=== PATIENT | male | born 1945 | race Caucasian/White ===

== ENCOUNTER 2019-05-20 10:22 | Outpatient (RCR) | payer MEDICARE, OTHER, SELFPAY | END 2019-05-31 00:01 | LOC: WOUND 10:22 | PROVIDERS: Family Provider Family Medicine; Visit Provider Surgery | DX: E11.621 Type 2 diabetes mellitus with foot ulcer (principal); L97.512 Non-pressure chronic ulcer of other part of right foot with fat layer exposed ==

== ENCOUNTER 2019-06-14 10:17 | Outpatient (CLI) | payer MEDICARE, OTHER, SELFPAY ==
--- NOTE | 2019-06-14 10:37 | XR_ITS ---
WS: [id number] Chest 2 views, 06/14/2019 Clinical Data: SHORTNESS OF BREATH/COPD Comparison: Left rib detail, 07/13/2017, AP chest, 01/20/2012. Findings: No nodules, masses or effusions are seen. The heart is enlarged. The pulmonary vascularity is not increased. No pneumonia or pneumothorax is seen. The patient has had plate fixation of left la teral rib fractures 4 through 8. There is an old left ninth rib fracture. The diaphragms are flattene d. The aortic arch shows tortuosity and calcification. XR/XR chest 2V* [id number] Impression: 1. Cardiomegaly and atherosclerosis. 2. Hyperinflation. 3. Plate fixation of left rib fractures unchanged.
[2019-06-14 11:25] LABS: Basophils % 0.4 %; Eosinophils # 0.7 10^3/uL (0.0-0.8); Eosinophils % 6.5 %; Hematocrit 37.9 % (42.0-52.0); Hemoglobin 11.2 g/dL (11.7-16.6); Lymphocytes # 1.8 10^3/uL (0.8-4.8); Lymphocytes % 15.7 %; Mean Corpuscular HGB Conc 29.6 g/dL (30.0-36.0); Mean Corpuscular Hemoglobin 24.3 pg (28.0-34.0); Mean Corpuscular Volume 82.4 fL (80-94); Mean Platelet Volume 10.3 fL (7.4-10.4); Monocytes # 0.9 10^3/uL (0.2-0.9); Monocytes % 7.8 %; Neutrophils # 7.7 10^3/uL (1.8-7.7); Neutrophils % 69.2 %; Nucleated Red Blood Cells % 0 %; Platelet Count 249 10^3/cmm (130-400); White Blood Count 11.2 10^3/uL (4.0-10.0)
[2019-06-14 11:37] LABS: Alanine Aminotransferase 22 U/L (0-41); Alkaline Phosphatase 124 IU/L (40-130); Anion Gap 14.6 (5-19); Aspartate Amino Transferase 17 U/L (0-40); Blood Urea Nitrogen 16 mg/dL (8-23); Calcium 10.1 mg/Dl (8.8-10.2); Carbon Dioxide 28 mmol/L (22-29); Chloride 101 mmol/L (98-107); Globulin 2.5 g/dL (1.3-4.6); Glucose 195 mg/dL (74-106); Potassium 5.6 mmol/L (3.5-5.1); Sodium 138 mmol/L (136-145); Total Bilirubin 0.2 mg/dL (0.15-1.2); Total Protein 6.5 g/dL (6.6-8.7)
== END 2019-06-14 10:18 | disposition home or self-care (01) ==
LOC: RAD 10:25
PROVIDERS: Family Provider Family Medicine; PCP Family Medicine; Visit Provider Internal Medicine Critical Care Medicine
DX: J44.9 Chronic obstructive pulmonary disease, unspecified (principal); R06.02 Shortness of breath; I51.7 Cardiomegaly; I70.0 Atherosclerosis of aorta; S22.42XD Multiple fractures of ribs, left side, subsequent encounter for fracture with routine healing; Z98.1 Arthrodesis status; X58.XXXD Exposure to other specified factors, subsequent encounter
CPT/HCPCS: 71046; 80053; 85025

== ENCOUNTER 2019-07-01 10:07 | Outpatient (RCR) | payer MEDICARE, OTHER, SELFPAY | END 2019-07-01 23:59 | disposition home or self-care (01) | LOC: WOUND 10:07 | PROVIDERS: Family Provider Family Medicine; Visit Provider Surgery | DX: E11.621 Type 2 diabetes mellitus with foot ulcer (principal); L97.512 Non-pressure chronic ulcer of other part of right foot with fat layer exposed; I96 Gangrene, not elsewhere classified | CPT/HCPCS: 11042 ==

== ENCOUNTER 2019-07-08 09:47 | Outpatient (RCR) | payer MEDICARE, OTHER, SELFPAY | END 2019-07-30 23:59 | disposition home or self-care (01) | LOC: WOUND 09:47 | PROVIDERS: Family Provider Family Medicine; PCP Family Medicine; Visit Provider Surgery | DX: E11.621 Type 2 diabetes mellitus with foot ulcer (principal); L97.519 Non-pressure chronic ulcer of other part of right foot with unspecified severity | CPT/HCPCS: 99212 ==

== ENCOUNTER 2019-07-08 10:00 | Outpatient (RCR) | payer MEDICARE, OTHER, SELFPAY | END 2019-07-30 23:59 | disposition home or self-care (01) | LOC: WOUND 10:00 | PROVIDERS: Family Provider Family Medicine; PCP Family Medicine; Visit Provider Surgery | DX: Z09 Encounter for follow-up examination after completed treatment for conditions other than malignant neoplasm (principal) | CPT/HCPCS: 99212 ==

== ENCOUNTER → 2021-12-12 10:58 | Outpatient (BNVA) | payer MEDICARE, OTHER, SELFPAY | PROVIDERS: Family Provider Family Medicine; PCP Family Medicine; Visit Provider Family Medicine | DX: E87.5 Hyperkalemia (principal); E88.09 Other disorders of plasma-protein metabolism, not elsewhere classified; I50.9 Heart failure, unspecified; D64.9 Anemia, unspecified | CPT/HCPCS: 80048 ==

== ENCOUNTER → 2021-12-19 13:54 | Outpatient (BNVA) | payer MEDICARE, OTHER, SELFPAY | PROVIDERS: Family Provider Family Medicine; PCP Family Medicine; Visit Provider Family Medicine | DX: E87.5 Hyperkalemia (principal); E88.09 Other disorders of plasma-protein metabolism, not elsewhere classified; I50.9 Heart failure, unspecified | CPT/HCPCS: 80048 ==

== ENCOUNTER → 2021-12-26 14:39 | Outpatient (BNVA) | payer MEDICARE, OTHER, SELFPAY | PROVIDERS: Family Provider Family Medicine; PCP Family Medicine; Visit Provider Family Medicine | DX: N28.9 Disorder of kidney and ureter, unspecified (principal); G47.33 Obstructive sleep apnea (adult) (pediatric) | CPT/HCPCS: 80048 ==

== ENCOUNTER → 2022-01-02 10:21 | Outpatient (BNVA) | payer MEDICARE, OTHER, SELFPAY | PROVIDERS: Family Provider Family Medicine; PCP Family Medicine; Visit Provider Family Medicine | DX: N28.9 Disorder of kidney and ureter, unspecified (principal); G47.33 Obstructive sleep apnea (adult) (pediatric) | CPT/HCPCS: 80048 ==

== ENCOUNTER → 2022-07-14 10:40 | Outpatient (BNVA) | payer MEDICARE, OTHER, SELFPAY | PROVIDERS: Family Provider Family Medicine; PCP Family Medicine; Visit Provider Clinical Nurse Specialist Adult Health | DX: Z01.810 Encounter for preprocedural cardiovascular examination (principal); I50.9 Heart failure, unspecified | CPT/HCPCS: 80048; 83880 ==

== ENCOUNTER 2022-09-09 15:16 | Outpatient (CLI) | payer MEDICARE, OTHER, SELFPAY ==
[2022-09-09 15:29] LABS: Basophils # 0.1 10^3/uL (0.0-0.1); Basophils % 0.7 %; Eosinophils # 0.6 10^3/uL (0.0-0.8); Eosinophils % 5.8 %; Hematocrit 37.3 % (42.0-52.0); Hemoglobin 11.7 g/dL (11.7-16.6); Lymphocytes # 1.2 10^3/uL (0.8-4.8); Lymphocytes % 11.8 %; Mean Corpuscular HGB Conc 31.4 g/dL (30.0-36.0); Mean Corpuscular Hemoglobin 27.4 pg (28.0-34.0); Mean Corpuscular Volume 87.4 fl (80-94); Mean Platelet Volume 10.5 fL (7.4-10.4); Monocytes # 0.8 10^3/uL (0.2-0.9); Monocytes % 8.1 %; Neutrophils # 7.13 10^3/uL (1.8-7.7); Neutrophils % 72.9 %; Nucleated Red Blood Cells % 0 %; Platelet Count 228 10^3/cmm (130-400); Red Blood Count 4.27 10^6/uL (4.1-5.3); Red Cell Distribution Width 16.8 % (12.1-15.1); White Blood Count 9.8 10^3/uL (4.0-10.0)
[2022-09-09 15:49] LABS: Alanine Aminotransferase 24 U/L (0-41); Albumin Level 3.7 g/dL (3.5-5.2); Alkaline Phosphatase 100 U/L (40-130); Anion Gap 18.7 (5-19); Aspartate Amino Transferase 22 U/L (0-40); Blood Urea Nitrogen 31 mg/dL (8-23); C Reactive Protein 131.8 mg/L (0.0-4.9); Carbon Dioxide 26 mmol/L (22-29); Chloride 99 mmol/L (98-107); Globulin 3.9 g/dL (1.3-4.6); Glucose 172 mg/dL (65-115); Osmolality Calculated 299 mOsm/kg (285-295); Potassium 4.7 mmol/L (3.5-5.1); Sodium 139 mmol/L (136-145); Total Bilirubin 0.4 mg/dL (0.15-1.2); Total Protein 7.6 g/dL (6.6-8.7)
[2022-09-09 16:10] LABS: Creatine Phosphokinase 367 U/L (39-308)
== END 2022-09-09 15:17 | disposition home or self-care (01) ==
LOC: LAB 15:19
PROVIDERS: PCP Family Medicine; Visit Provider Surgery
DX: E11.621 Type 2 diabetes mellitus with foot ulcer (principal); N18.31 Chronic kidney disease, stage 3a
CPT/HCPCS: 80053; 82550; 85025; 86140

== ENCOUNTER 2022-09-15 10:44 | Outpatient (CLI) | payer MEDICARE, OTHER, SELFPAY ==
[2022-09-15 14:13] LABS: Basophils # 0.1 10^3/uL (0.0-0.1); Basophils % 0.7 %; Eosinophils # 0.7 10^3/uL (0.0-0.8); Eosinophils % 5.8 %; Hemoglobin 12.1 g/dL (11.7-16.6); Lymphocytes # 1.5 10^3/uL (0.8-4.8); Mean Corpuscular HGB Conc 30.3 g/dL (30.0-36.0); Mean Corpuscular Hemoglobin 27.3 pg (28.0-34.0); Mean Corpuscular Volume 90.1 fl (80-94); Mean Platelet Volume 10.7 fL (7.4-10.4); Monocytes # 0.6 10^3/uL (0.2-0.9); Monocytes % 5.4 %; Neutrophils # 8.43 10^3/uL (1.8-7.7); Neutrophils % 74.6 %; Nucleated Red Blood Cells % 0 %; Platelet Count 277 10^3/cmm (130-400); Red Blood Count 4.44 10^6/uL (4.1-5.3); Red Cell Distribution Width 17.2 % (12.1-15.1); White Blood Count 11.3 10^3/uL (4.0-10.0)
[2022-09-15 14:29] LABS: Alanine Aminotransferase 20 U/L (0-41); Alkaline Phosphatase 100 U/L (40-130); Anion Gap 15.5 (5-19); Aspartate Amino Transferase 15 U/L (0-40); Blood Urea Nitrogen 28 mg/dL (8-23); C Reactive Protein 15.6 mg/L (0.0-4.9); Carbon Dioxide 28 mmol/L (22-29); Chloride 96 mmol/L (98-107); Creatine Phosphokinase 179 U/L (39-308); Globulin 3.7 g/dL (1.3-4.6); Glucose 259 mg/dL (65-115); Osmolality Calculated 292 mOsm/kg (285-295); Potassium 5.5 mmol/L (3.5-5.1); Sodium 134 mmol/L (136-145); Total Bilirubin 0.3 mg/dL (0.15-1.2); Total Protein 7.7 g/dL (6.6-8.7)
== END 2022-09-15 10:45 | disposition home or self-care (01) ==
PROVIDERS: PCP Family Medicine; Visit Provider Surgery
DX: E11.621 Type 2 diabetes mellitus with foot ulcer (principal); N18.31 Chronic kidney disease, stage 3a
CPT/HCPCS: 80053; 82550; 85025; 86140

== ENCOUNTER 2022-09-22 12:02 | Outpatient (CLI) | payer MEDICARE, OTHER, SELFPAY ==
[2022-09-22 12:16] LABS: Basophils # 0.1 10^3/uL (0.0-0.1); Basophils % 0.9 %; Eosinophils # 0.9 10^3/uL (0.0-0.8); Eosinophils % 9.4 %; Hematocrit 39.6 % (42.0-52.0); Hemoglobin 12.3 g/dL (11.7-16.6); Lymphocytes # 2.1 10^3/uL (0.8-4.8); Lymphocytes % 22.7 %; Mean Corpuscular HGB Conc 31.1 g/dL (30.0-36.0); Mean Corpuscular Volume 90.2 fl (80-94); Mean Platelet Volume 11.7 fL (7.4-10.4); Monocytes % 10.4 %; Neutrophils % 56.2 %; Nucleated Red Blood Cells % 0 %; Platelet Count 206 10^3/cmm (130-400); Red Blood Count 4.39 10^6/uL (4.1-5.3); Red Cell Distribution Width 16.9 % (12.1-15.1); White Blood Count 9.3 10^3/uL (4.0-10.0)
[2022-09-22 12:36] LABS: Alanine Aminotransferase 17 U/L (0-41); Albumin Level 3.7 g/dL (3.5-5.2); Alkaline Phosphatase 99 U/L (40-130); Aspartate Amino Transferase 13 U/L (0-40); Blood Urea Nitrogen 42 mg/dL (8-23); C Reactive Protein 17.1 mg/L (0.0-4.9); Calcium 8.8 mg/dL (8.5-10.5); Carbon Dioxide 25 mmol/L (22-29); Chloride 95 mmol/L (98-107); Creatine Phosphokinase 120 U/L (39-308); Globulin 3.2 g/dL (1.3-4.6); Glucose 374 mg/dL (65-115); Osmolality Calculated 302 mOsm/kg (285-295); Sodium 133 mmol/L (136-145); Total Bilirubin 0.4 mg/dL (0.15-1.2); Total Protein 6.9 g/dL (6.6-8.7)
== END 2022-09-22 12:03 | disposition home or self-care (01) ==
LOC: LAB 12:04
PROVIDERS: PCP Family Medicine; Visit Provider Surgery
DX: E11.621 Type 2 diabetes mellitus with foot ulcer (principal); N18.31 Chronic kidney disease, stage 3a
CPT/HCPCS: 80053; 82550; 85025; 86140

== ENCOUNTER 2022-09-29 18:39 | Outpatient (CLI) | payer MEDICARE, OTHER, SELFPAY ==
[2022-09-29 19:01] LABS: Basophils # 0.1 10^3/uL (0.0-0.1); Basophils % 0.6 %; Eosinophils # 0.8 10^3/uL (0.0-0.8); Hematocrit 37.3 % (42.0-52.0); Hemoglobin 11.6 g/dL (11.7-16.6); Lymphocytes # 1.3 10^3/uL (0.8-4.8); Lymphocytes % 10.5 %; Mean Corpuscular HGB Conc 31.1 g/dL (30.0-36.0); Mean Corpuscular Hemoglobin 28.5 pg (28.0-34.0); Mean Corpuscular Volume 91.6 fl (80-94); Mean Platelet Volume 11.9 fL (7.4-10.4); Monocytes # 1.1 10^3/uL (0.2-0.9); Monocytes % 8.8 %; Neutrophils # 9.15 10^3/uL (1.8-7.7); Neutrophils % 73.6 %; Nucleated Red Blood Cells % 0 %; Platelet Count 154 10^3/cmm (130-400); Red Blood Count 4.07 10^6/uL (4.1-5.3); White Blood Count 12.4 10^3/uL (4.0-10.0)
[2022-09-29 19:22] LABS: Albumin Level 3.8 g/dL (3.5-5.2); Alkaline Phosphatase 115 U/L (40-130); Blood Urea Nitrogen 40 mg/dL (8-23); Calcium 9.4 mg/dL (8.5-10.5); Carbon Dioxide 23 mmol/L (22-29); Chloride 96 mmol/L (98-107); Creatine Phosphokinase 126 U/L (39-308); Globulin 2.8 g/dL (1.3-4.6); Glucose 325 mg/dL (65-115); Osmolality Calculated 302 mOsm/kg (285-295); Sodium 135 mmol/L (136-145); Total Bilirubin 0.4 mg/dL (0.15-1.2); Total Protein 6.6 g/dL (6.6-8.7)
[2022-09-29 19:24] LABS: Alanine Aminotransferase 17 U/L (0-41); Anion Gap 21.7 (5-19); Aspartate Amino Transferase 19 U/L (0-40); Potassium 5.7 mmol/L (3.5-5.1)
== END 2022-09-29 18:40 | disposition home or self-care (01) ==
LOC: LAB 18:43
PROVIDERS: PCP Family Medicine; Visit Provider Surgery
DX: N18.30 Chronic kidney disease, stage 3 unspecified (principal)
CPT/HCPCS: 80053; 82550; 85025; 86140

== ENCOUNTER 2022-10-03 19:44 | Inpatient (IN) | payer MEDICARE, OTHER, SELFPAY ==
[2022-10-03 19:45] VITALS: BP 161/85; PULSE 100; RESP 20; TEMP 37.5; O2SAT 90; BMI 31.5
[2022-10-03 19:53] VITALS: BP 161/85; PULSE 100; RESP 26; TEMP 37.5; O2SAT 94
--- NOTE | 2022-10-03 19:57 | ECG_ITS ---
[facility] Test Date: 2022-10-03 Pat Name: Juan M Jara Department: Room: Gender: Male Daycare Director: : 1945 Requested By: Cosmo Contreras Order Number: [id number] Gabi MD: Joao Lawrence M.D. Measurements Intervals [place] Rate: 89 P: 61 VA: 179 QRS: 133 QRSD: 120 T: 78 QT: 381 QTc: 465 Interpretive Statements SINUS RHYTHM WITH SINUS ARRHYTHMIA RIGHT BUNDLE BRANCH BLOCK [120+ ms QRS DURATION, UPRIGHT V1, 40+ ms S IN I/aVL/V4/V5/V6] LEFT POSTERIOR FASCICULAR BLOCK [QRS AXIS > 109, INFERIOR Q] No previous ECG available for comparison Electronically Signed On 10-03-2022 23:02:45 CDT by Joao Lawrence M.D. [id number]
--- NOTE | 2022-10-03 19:57 | XRR_ITS ---
PROCEDURE INFORMATION: Exam: XR Chest Exam date and time: 10/03/2022 8:05 PM Age: 76 years old Clinical indication: Shortness of breath; Prior surgery; Surgery type: Chest reconstruction; Additional info: SOB TECHNIQUE: Imaging protocol: Radiologic exam of the chest. Views: 1 view. COMPARISON: CR XR chest 2V* [id number] 06/14/2019 10:59 AM FINDINGS: Tubes, catheters and devices: Right PICC is new and in place. Tip overlies lower SVC. Lungs: Progressive bilateral hazy patchy airspace disease especially in the right mid to lower lung. Pleural spaces: Unremarkable. No pleural effusion. No pneumothorax. Heart/Mediastinum: The heart is large. CABG and vascular calcification. Bones/joints: Left rib ORIF. XR/XR chest 1V portable [id number] IMPRESSION: Patchy bilateral pneumonia should be followed to resolution.
[2022-10-03 20:15] LABS: Basophils % 0.3 %; Eosinophils # 0.9 10^3/uL (0.0-0.8); Eosinophils % 6.5 %; Hematocrit 37.6 % (42.0-52.0); Hemoglobin 11.6 g/dL (11.7-16.6); Lymphocytes % 14.5 %; Mean Corpuscular HGB Conc 30.9 g/dL (30.0-36.0); Mean Corpuscular Hemoglobin 27.7 pg (28.0-34.0); Mean Corpuscular Volume 89.7 fl (80-94); Mean Platelet Volume 11.2 fL (7.4-10.4); Monocytes # 1.6 10^3/uL (0.2-0.9); Monocytes % 11.6 %; Neutrophils # 9.26 10^3/uL (1.8-7.7); Neutrophils % 66.5 %; Nucleated Red Blood Cells % 0 %; Platelet Count 202 10^3/cmm (130-400); Red Blood Count 4.19 10^6/uL (4.1-5.3); Red Cell Distribution Width 15.9 % (12.1-15.1); White Blood Count 13.9 10^3/uL (4.0-10.0)
[2022-10-03] MEDS: dexamethasone 10 mg/mL INJ IVP (20:30)
[2022-10-03 20:31] LABS: Lactic Sepsis W/Reflex 0.8 mmol/L (0.5-2.2)
[2022-10-03 20:34] LABS: Troponin(5th) Baseline 32 ng/L (0-15)
[2022-10-03 20:42] LABS: ABG PCO2 49.6 mmHg (35-45); ABG PH Result 7.37 (7.35-7.45); Arterial Blood Gas Hematocrit 36.6 % (42-52); Base Excess ABG 2.7 mmol/L (-2.0-2.0); Blood Gas Allen Test Pos; Blood Gas Sample Site Radial, left; Blood Gas Sample Type Arterial; Carboxyhemoglobin 1.8 %THgb (0.4-20.1); HCO3 ABG 28.8 mmol/L (22-26); HGB O2 Sat 96.2 % (95-100); Methemoglobin 0.3 % (0.4-1.5); PO2 ABG 98.5 mmHg (80.0-100.0); Total Hemoglobin 11.9 g/dL (14-18)
[2022-10-03 20:42] LABS: Alanine Aminotransferase 20 U/L (0-41); Albumin Level 3.7 g/dL (3.5-5.2); Alkaline Phosphatase 115 U/L (40-130); Aspartate Amino Transferase 22 U/L (0-40); Blood Urea Nitrogen 54 mg/dL (8-23); Calcium 8.1 mg/dL (8.5-10.5); Carbon Dioxide 28 mmol/L (22-29); Chloride 91 mmol/L (98-107); Glucose 108 mg/dL (65-115); Magnesium 1.8 mg/dL (1.7-2.3); Osmolality Calculated 289 mOsm/kg (285-295); Sodium 132 mmol/L (136-145); Total Bilirubin 0.4 mg/dL (0.15-1.2); Total Protein 6.7 g/dL (6.6-8.7)
[2022-10-03 20:45] VITALS: PULSE 87; RESP 16; O2SAT 99
[2022-10-03 20:58] LABS: SARS Covid-2 Antigen negative (Negative)
[2022-10-03 21:21] LABS: NT Pro B Type Natriuretic Pept 326 pg/mL (0-450)
--- NOTE | 2022-10-03 21:57 | ECG_ITS ---
[facility] Test Date: 2022-10-03 Pat Name: Juan M Jara Department: Room: Gender: Male Training Administrator: : 1945 Requested By: Cosmo Contreras Order Number: [id number] Gabi MD: Joao Lawrence M.D. Measurements Intervals [place] Rate: 84 P: 65 [place]: 188 QRS: 92 QRSD: 128 T: 66 QT: 393 QTc: 467 Interpretive Statements SINUS RHYTHM BORDERLINE RIGHT AXIS DEVIATION [QRS AXIS > 90] POSSIBLE RIGHT VENTRICULAR CONDUCTION DELAY [RSR (QR) IN V1/V2] Compared to ECG 10/03/2022 20:58:05 Sinus arrhythmia no longer present Right bundle-branch block no longer present Left posterior fascicular block no longer present Electronically Signed On 10-03-2022 23:04:20 CDT by Joao Lawrence M.D. [id number]
--- NOTE | 2022-10-03 22:14 | ED_ITS ---
HPI - SOB/Dyspnea General: Chief Complaint: Shortness of Breath/Dyspnea Stated Complaint: SOB Time Seen by Provider: 10/03/22 19:49 Source: patient and EMS History of Present Illness: HPI Narrative: 76-year-old male with a history of COPD and congestive heart failure. He evidently has been hospitalized for treatment of diabetic ulcerations to his feet, and left [facility] this morning. Over the course the days developed worsening shortness of breath. The patient says he has been short of breath about 3 days he was found to have saturations in the mid 70s on EMS arrival on his normal home O2.. He was placed on 6 L of oxygen, given IV Lasix and 3 different bronchodilator treatments. Saturations are mildly improved. MD elicited complaint: shortness of breath Pertinent past history: COPD and congestive heart failure Context: recent illness Timing: constant and progressively worsening Severity: moderate Exacerbating factors: lying flat and exertion Relieving factors: oxygen and bronchodilators Known history of: COPD and congestive heart failure Associated symptoms: Reports chest congestion and cough; Deny chest pain, fever(s), nausea or vomiting Treatment prior to arrival: oxygen, bronchodilator and diuretics Related Data: Home oxygen amount: 4 liters Review of Systems Const: Denies: fever(s) Card: Denies: chest pain Resp: Reports: chest congestion GI: Denies: nausea or vomiting PFS ED PFSH: Medical History (Updated 10/04/22 @ 04:33 by Cosmo Navarro DO) Anemia Chronic pain COPD (chronic obstructive pulmonary disease) Diabetes mellitus Dyspnea Surgical History (Updated 10/03/22 @ 23:42 by Chino Morrell MD) No pertinent past surgical history Family History Other Cancer Hypertension Social History Smoking and tobacco status: former smoker Alcohol intake: current Substance/Drug Use: never Physical Exam Const: GENERAL APPEARANCE: cooperative, disheveled, ill appearing and frail appearing HENMT: COMMON NORMALS: normocephalic, atraumatic and Normal external nose present HEAD & SCALP: normocephalic and atraumatic FACE & SINUS: normal facial exam and face symmetric NOSE: Normal external nose present Eye: COMMON NORMALS: EOMs intact bilaterally Neck/C-Spine: GENERAL: Yes trachea midline Chest: CHEST: Yes Symmetrical chest wall rise Resp: EFFORT & INSPECTION: Yes tachypneic, Yes labored and Yes uses accessory muscles AUSCULTATION: rhonchi and wheezes Cardio: COMMON NORMALS: regular rhythm RATE: tachycardic RHYTHM: regular rhythm GI: COMMON NORMALS: Normal to inspection, nondistended, normoactive bowel sounds present Neuro: LENIN COMA SCALE: document GCS findings [place] coma scale eye opening: Spontaneous [place] coma scale verbal response: Confused [place] coma scale motor response: Obey commands Lenin coma scale total score: 14 Psych: COMMON NORMALS: cooperative Course Vital Signs: Vital signs: Vital Signs Temperature 98.7 F 10/04/22 00:54 Pulse Rate 71 10/04/22 01:49 Respiratory Rate 22 H 10/04/22 00:54 Blood Pressure 161/83 10/04/22 00:54 Pulse Oximetry 92 10/04/22 00:54 Oxygen Delivery Me thod Nasal Cannula 10/04/22 02:01 Oxygen Flow Rate 6 10/04/22 02:01 Fraction of Inspir ed Oxygen 40 10/03/22 22:42 MDM - SOB/Dyspnea Medical Decision Making Patient had been given 3 different bronchodilator treatments in route to the hospital by EMS. He was also given IV Lasix. He received 10 mg of dexamethasone IV here. Chest x-ray reveals patchy bilateral pneumonia. He was placed on BiPAP, due to continued saturations in the mid 80s despite significant oxygenation by nasal cannula. White blood cell count is 14, hemoglobin 11.6, creatinine 1.7. He is treated with IV vancomycin and Zosyn following blood c ultures for healthcare associated pneumonia. His BNP is normal. He is on apixaban, so PE is not likely Hospitalist is seeing the patient in the emergency department Lab Data 10/04/22 02:21 10/04/22 02:21 Labs/Radiology: Radiology Impressions Chest X-Ray 10/03/22 19:57 IMPRESSION: Patchy bilateral pneumonia should be followed to resolution. Chest CT 10/03/22 23:00 IMPRESSION: 1. Multifocal severe bilateral patchy pneumonia. This needs to be followed up closely to resolution. 2. Likely reactive bulky mediastinal lymphadenopathy. 3. Multiple chronic findings above with atherosclerosis, COPD, etc. COMMENTS: In the absence of a history or active diagnosis of lung cancer, it is recommended that this patient with emphysema be evaluated for enrollment in a low dose CT lung cancer screening program. Laboratory Results WBC 13.9 10^3/uL (4.0-10.0) H 10/03/22 19:50 RBC 4.19 10^6/uL (4.1-5.3) 10/03/22 19:50 Hgb 11.6 g/dL (11.7-16.6) L 10/03/22 19:50 Hct 37.6 % (42.0-52.0) L 10/03/22 19:50 MCV 89.7 fl (80-94) 10/03/22 19:50 MCH 27.7 pg (28.0-34.0) L 10/03/22 19:50 MCHC 30.9 g/dL (30.0-36.0) 10/03/22 19:50 RDW 15.9 % (12.1-15.1) H 10/03/22 19:50 Plt Count 202 10^3/cmm (130-400) 10/03/22 19:50 MPV 11.2 fL (7.4-10.4) H 10/03/22 19:50 Neut % (Auto) 66.5 % 10/03/22 19:50 Lymph % (Auto) 14.5 % 10/03/22 19:50 Hale % (Auto) 11.6 % 10/03/22 19:50 Eos % (Auto) 6.5 % 10/03/22 19:50 Baso % (Auto) 0.3 % 10/03/22 19:50 Neut # (Auto) 9.26 10^3/uL (1.8-7.7) H 10/03/22 19:50 Lymph # (Auto) 2.0 10^3/uL (0.8-4.8) 10/03/22 19:50 Hale # (Auto) 1.6 10^3/uL (0.2-0.9) H 10/03/22 19:50 Eos # (Auto) 0.9 10^3/uL (0.0-0.8) H 10/03/22 19:50 Baso # (Auto) 0.0 10^3/uL (0.0-0.1) 10/03/22 19:50 Nucleated RBC % (auto) 0 % 10/03/22 19:50 Nucleated RBCs # 0.0 /100WBC 10/03/22 19:50 Specimen Type Arterial 10/03/22 20:31 Sample Site Radial, left 10/03/22 20:31 ABG pH 7.37 (7.35-7.45) 10/03/22 20:31 ABG pCO2 49.6 mmHg (35-45) H 10/03/22 20:31 ABG pO2 98.5 mmHg (80.0-100.0) 10/03/22 20:31 ABG HCO3 28.8 mmol/L (22-26) H 10/03/22 20:31 ABG Base Excess 2.7 mmol/L (-2.0-2.0) H 10/03/22 20:31 Renzo Test Pos 10/03/22 20:31 Hematocrit 36.6 % (42-52) L 10/03/22 20:31 Hgb O2 Saturation 96.2 % (95-100) 10/03/22 20:31 Carboxyhemoglobin 1.8 %THgb (0.4-20.1) 10/03/22 20:31 Methemoglobin 0.3 % (0.4-1.5) L 10/03/22 20:31 Total Hemoglobin 11.9 g/dL (14-18) L 10/03/22 20:31 FiO2 60.0 % 10/03/22 20:31 Educational Sign Language Interpreter ID [email or web address] 10/03/22 20:31 Sodium 132 mmol/L (136-145) L 10/03/22 19:50 Potassium 5.0 mmol/L (3.5-5.1) 10/03/22 19:50 Chloride 91 mmol/L (98-107) L 10/03/22 19:50 Carbon Dioxide 28 mmol/L (22-29) 10/03/22 19:50 Anion Gap 18.0 (5-19) 10/03/22 19:50 BUN 54 mg/dL (8-23) H 10/03/22 19:50 Creatinine 1.7 mg/dL (0.7-1.2) H 10/03/22 19:50 GFR Calculation Not Reportable 10/03/22 19:50 Glucose 108 mg/dL (65-115) 10/03/22 19:50 Calculated Osmolality 289 mOsm/kg (285-295) 10/03/22 19:50 Lactic Acid 0.8 mmol/L (0.5-2.2) 10/03/22 19:50 Calcium 8.1 mg/dL (8.5-10.5) L 10/03/22 19:50 Magnesium 1.8 mg/dL (1.7-2.3) 10/03/22 19:50 Total Bilirubin 0.4 mg/dL (0.15-1.2) 10/03/22 19:50 AST 22 U/L (0-40) 10/03/22 19:50 ALT 20 U/L (0-41) 10/03/22 19:50 Alkaline Phosphatase 115 U/L (40-130) 10/03/22 19:50 Troponin T Baseline 32 ng/L (0-15) H 10/03/22 19:50 Troponin T 120 Minute 31.40 ng/L (0-15) H 10/03/22 22:22 Delta Troponin T -0.60 ABS# (0-10) L 10/03/22 22:22 C-Reactive Protein 277.7 mg/L (0.0-4.9) H 10/03/22 02:21 NT-Pro-B Natriuret Pep 326 pg/mL (0-450) 10/03/22 19:50 Total Protein 6.7 g/dL (6.6-8.7) 10/03/22 19:50 Albumin 3.7 g/dL (3.5-5.2) 10/03/22 19:50 Globulin 3.0 g/dL (1.3-4.6) 10/03/22 19:50 Triglycerides 96 mg/dL (0-150) 10/03/22 02:21 Cholesterol 160 mg/dL (0-200) 10/03/22 02:21 LDL Cholesterol, Calc 103 mg/dL (50-129) 10/03/22 02:21 HDL Cholesterol 38 mg/dL (60-100) L 10/03/22 02:21 LDL/HDL Ratio 2.71 RATIO (0.00-3.22) 10/03/22 02:21 Cholesterol/HDL Ratio 4.21 mg/dL (1.0-5.00) 10/03/22 02:21 Procalcitonin 0.68 ng/mL (0-0.5) H 10/03/22 02:21 TSH 0.82 uIU/mL (0.27-4.20) 10/03/22 02:21 SARS-CoV-2 Ag (Rapid) negative (Negative) 10/03/22 20:34 Discharge Plan Discharge Patient Disposition: Admitted As Inpatient Admit Provider: Chino Morrell Clinical Impression: Acute on chronic respiratory failure with hypoxia, Acute exacerbation of chronic obstructive pulmonary disease (COPD), Healthcare-associated pneumonia Condition: Fair Coding Level of Care Code ED Magento Developer for Crystal Walker
[2022-10-03] MEDS: piperacillin-tazobactam 4.5 GM in sodium chloride 0.9% (plus) 50 ML IV (22:25)
--- NOTE | 2022-10-03 22:29 | PC.PHAR ---
Pharmacokinetic dosing service Date: 10/03/22 Time: 2229 Objective: Patient: Juan M Jara Floor: ED-12 Age: 76 yo Serum creatinine: 1.7 mg/dL Height: 70.0 Inches Weight (kg): 99.79 Diagnosis: Relevant medical/social history: Cultures and sensitivities: Other labs: Assessment: IBW (kg): 73.00 Dosing wt(kg): 99.79 Estimated Creatinine clearance (ml/min): 37.6 CRCL method: Cockcroft and Gault using ibw(default). Drug selected: Vancomycin Loading dose (mg): 0 Vd (liters): 89.8 (factor used: 0.9 L/kg) Albert (hr-1): 0.036 Half life (hrs): 19.25 Recommended dose: 1500 mg Interval: 24 hrs Infusion time (hrs): 1.5 Predicted peak (mcg/mL): 28.1 Predicted trough (mcg/mL): 12.50 Total body weight is being used for vancomycin dosing. Renal function is stable [ ] /unstable [ ] Recommendations: Give Vancomycin 1500 mg q 24 hrs with an expected Cpeak of 28.1 mcg/ml and an expected Ctrough of 12.50 mcg/ml Renal dosing of other antibiotics (review renal dosing of other medications and list guidelines here): Thank you for the consult, will continue to follow. Signature: Deloris Nicole [facility]
[2022-10-03 22:42] VITALS: PULSE 81; RESP 16; O2SAT 92
--- NOTE | 2022-10-03 23:00 | CTR_ITS ---
PROCEDURE INFORMATION: Exam: CT Chest Without Contrast; Diagnostic Exam date and time: 10/03/2022 11:08 PM Age: 76 years old Clinical indication: Shortness of breath; Additional info: SOB TECHNIQUE: Imaging protocol: Diagnostic computed tomography of the chest without contrast. Radiation optimization: All CT scans at this facility use at least one of these dose optimization techniques: automated exposure control; mA and/or kV adjustment per patient size (includes targeted exams where dose is matched to clinical indication); or iterative reconstruction. REPORTING DATA: Count of CT and Cardiac NM exams in prior 12 months: This patient has received 0 known CTs and 0 known cardiac nuclear medicine studies in the 12 months prior to the current study. COMPARISON: CR (CHEST, ) 10/03/2022 8:05 PM RADIATION DOSE METRICS: Total DLP (mGy-cm): 585.71 FINDINGS: Tubes, catheters and devices: Right PICC in place. Lungs: Moderate emphysema with COPD. Large areas of patchy bilateral airspace consolidation, qjxvs-vxozpvx-jydd-left. These measure up to about 7 cm in size. Airspace consolidation are likely, but other etiologies are also possible. Scattered areas of reticulonodular probable scarring. Pleural spaces: No pneumothorax. No pleural effusion. Heart: The heart is large. No pericardial effusion. Lymph nodes: Moderate bulky mediastinal lymphadenopathy. Nodes measure up to about 2.4 cm. Vasculature: Advanced diffuse vascular calcification noted. Vhjn-uk-dhiwmcba pulmonary hypertension. Diaphragm: Small hiatal hernia. Liver: Large and fatty liver. Bones/joints: Multifocal left rib ORIF. Advanced spine DJD. A few old left lower lateral rib deformities. Soft tissues: Right shoulder large intramuscular lipoma measures [address]/CT chest wo con [id number] IMPRESSION: 1. Multifocal severe bilateral patchy pneumonia. This needs to be followed up closely to resolution. 2. Likely reactive bulky mediastinal lymphadenopathy. 3. Multiple chronic findings above with atherosclerosis, COPD, etc. COMMENTS: In the absence of a history or active diagnosis of lung cancer, it is recommended that this patient with emphysema be evaluated for enrollment in a low dose CT lung cancer screening program.
[2022-10-03 23:08] VITALS: BP 150/66; PULSE 69; RESP 14; O2SAT 90
[2022-10-03] MEDS: vancomycin 1,500 MG/300 ML PIGGYBACK 200 MG IV (23:19)
--- NOTE | 2022-10-03 23:40 | P.HP_ITS ---
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 Patient tells me that he was just discharged from [facility], when he got home, he started to feel increasingly short of breath, with drops in his O2 sats, no fev ers, no chills, no calf pain, calf swelling, hemoptysis, has been taking all his medication as prescribed. His gave him 80 of Lasix, he also received 40 of Lasix in the ambulance ride over to [facility], he was placed on BiPAP here, currently resting comfortably on BiPAP, he wanted come off BiPAP as he could not tolerate it, so I put him on 10 L saturating in the mid s, I recommended for him to go back on BiPAP due to acute respiratory failure denies any chest pain, no palpitations Review of Systems Const: Denies: fever(s) Card: Denies: chest pain Resp: Reports: dyspnea GI: Denies: abdominal pain Medications/Allergies Home Medications Medication Instructions Recorded Confirmed Last Taken Type oxygen-air delivery systems ##1 06/10/19 07/14/22 Unknown History hydrocodone 7.5 mg-acetaminophen 1 tab PO Q3H PRN pain 1 month #100 02/14/22 07/14/22 Unknown Rx 325 mg tablet tabs furosemide 80 mg tablet 80 mg PO DAILY #30 tabs 03/04/22 07/14/22 Unknown Rx blood-glucose meter #1 ea 03/25/22 07/14/22 Unknown Rx isosorbide dinitrate 20 mg tablet 20 mg PO BID #180 tabs 03/25/22 07/14/22 Unknown Rx apixaban 5 mg tablet (Eliquis) 5 mg PO BID #180 tabs 03/27/22 07/14/22 Unknown Rx fluticasone fur. 100 mcg-umeclid 1 inh inhalation DAILY #60 ea 03/27/22 07/14/22 Unknown Rx 62.5 mcg-vilant 25 mcg inhalat.powder (Trelegy Ellipta) spironolactone 25 mg tablet 25 mg PO DAILY #90 tabs 05/23/22 07/14/22 Unknown Rx prednisone 5 mg tablet 5 mg PO DAILY PRN inflammatory 06/07/22 07/14/22 Unknown Rx pain #90 tabs metformin 1,000 mg tablet See Rx Instructions .Route 07/08/22 07/14/22 Unknown Rx .COMPLEX #180 tabs albuterol sulfate 2.5 mg/3 mL 2.5 mg (3 mL) inhalation QID #180 07/11/22 07/14/22 Unknown Rx (0.083 %) solution for nebulization mL nebulizers #1 ea 08/17/22 Unknown Rx albuterol sulfate 90 mcg/actuation 2 puff inhalation QID PRN 10/02/22 Unknown Rx aerosol inhaler (Ventolin HFA) shortness of breath or wheezing #8.5 grams insulin glargine 100 unit/mL (3 20 unit (0.2 mL) SUBCUT QAM #15 mL 10/02/22 Unknown Rx mL) subcutaneous pen (Basaglar KwikPen U-100 Insulin) morphine 30 mg tablet,extended 30 mg PO Q12H 30 days #60 tabs 10/02/22 Unknown Rx release pen needle, diabetic 31 gauge x #100 ea 10/02/22 Unknown Rx 1/4 (Unifine Pentips) pregabalin 150 mg capsule (Lyrica) 150 mg PO TID #90 caps 10/02/22 Unknown Rx test strips, lancets, needles #100 ea 10/02/22 Unknown Rx Allergies Allergy/AdvReac Type Severity Reaction Status Date / Time fentanyl Allergy Unknown Unknown Verified 07/14/22 11:23 methadone Allergy Unknown Unknown Verified 07/14/22 11:23 oxycodone Allergy Unknown Unknown Verified 07/14/22 11:23 Ruhgnhk-IWT-RsQ Reductase Allergy Unknown Verified 07/14/22 11:23 Inhibitor [Uhjuqmw-Xwo-Zdg Reductase Inhibitor] Ativan Allergy Unknown Unknown Uncoded 07/14/22 11:23 Dilaudid Allergy Unknown Unknown Uncoded 07/14/22 11:23 PFSH Acute PFSH: Medical History (Updated 10/03/22 @ 23:46 by Chino Morrell MD) Anemia Chronic pain COPD (chronic obstructive pulmonary disease) Diabetes mellitus Dyspnea Surgical History (Updated 10/03/22 @ 23:42 by Chino Morrell MD) No pertinent past surgical history Family History Other Cancer Hypertension Social History Smoking and tobacco status: former smoker Alcohol intake: current Substance/Drug Use: never Vitals/I&O/Wt Last Vital Signs Temp 99.5 F 10/03/22 19:53 Pulse 81 10/03/22 22:42 Resp 26 H 10/03/22 19:53 BP 161/85 10/03/22 19:53 Pulse Ox 92 10/03/22 22:42 O2 Del Method Nasal Cannula 10/03/22 19:53 O2 Flow Rate 6 10/03/22 19:53 FiO2 40 10/03/22 22:42 10/03/22 10/03/22 10/04/22 14:59 22:59 06:59 Intake Total 50 / 50 Balance 50 / 50 Weight last 48 hrs Weight 99.79 kg Physical Exam Const: COMMON NORMALS: no acute distress and patient oriented x3 HENMT: COMMON NORMALS: normocephalic HEAD & SCALP: normocephalic Eye: COMMON NORMALS: Equal, round and reactive pupils present Neck/C-Spine: COMMON NORMALS: no JVD Lymph: LYMPHATIC: no lymphadenopathy noted Resp: COMMON NORMALS: normal respiratory effort, No retractions and No use of accessory muscles AUSCULTATION: crackles and wheezes Cardio: COMMON NORMALS: regular rate, regular rhythm, S1 normal heart sound present and S2 normal heart sound present RATE: regular rate RHYTHM: regular rhythm HEART SOUNDS: S1 normal heart sound present and S2 normal heart sound present GI: COMMON NORMALS: Normal to inspection, nondistended, normoactive bowel sounds present, Soft to palpation and non-tender PALPATION: Yes Soft to palpation : COMMON NORMALS: Yes no CVA tenderness Extremity: COMMON NORMALS: no calf tenderness NARRATIVE EXTREMITY EXAM: 1+ pitting edema Neuro: COMMON NORMALS: patient oriented x3, CN's II-XII intact bilaterally, moves all extremities and no focal motor deficits OTHER: Left foot, diabetic ulcer dressed Psych: COMMON NORMALS: mental status grossly normal Data 10/03/22 19:50 10/03/22 19:50 Micro: Microbiology 10/03/22 20:32 Blood Culture - Preliminary Blood SPECIMEN COLLECTED 10/03/22 20:25 Blood Culture - Preliminary Blood SPECIMEN COLLECTED A&P Assessment and plan (1) Acute on chronic respiratory failure with hypoxia: (2) Healthcare-associated pneumonia: (3) CHF exacerbation: (4) Fluid overload: (5) Acute kidney injury superimposed on CKD: (6) Non-ST elevation NV (NSTEMI): (7) Diabetes mellitus: (8) COPD (chronic obstructive pulmonary disease): (9) Congestive heart failure: Qualifiers: Heart failure type: unspecified Heart failure chronicity: chronic Qualified Code(s): I50.9 - Heart failure, unspecified (10) Renal insufficiency: (11) Obstructive sleep apnea: Plan Acute hypoxic respiratory failure -Secondary to healthcare associated pneumonia -Patient is already on daptomycin, and ceftazidime -CT of the chest shows multifocal bilateral pneumonia -Currently on 10 L nasal cannula, have recommended for him to use BiPAP Plan -Admit to general medical floors -Monitor respiratory status closely -Sputum cultures, blood cultures -Continue vancomycin -Broaden antibiotic coverage to meropenem -DuoNeb -Budesonide -Full code -Eliquis for DVT prophylaxis Fluid overload, diastolic CHF exacerbation -Has received Lasix at home and in the ambulance ride over to [facility] -We will start Bumex 1 mg every 12 hours starting tomorrow morning -Cardiac echo NSTEMI -Likely type II supply/demand Babs from acute respiratory failure as above however cannot rule out underlying cardiac etiology -Serial EKGs, troponins, cardiac monitoring VIKTOR on CKD, monitor creatinine closely Type 2 diabetes mellitus, continue Lantus 20 units every morning, low-dose sliding scale Chronic pain continue home morphine NOÉ recommended BiPAP use Atrial fibrillation continue Eliquis Attestations Medical Necessity Statement*: Patient requires hospitalization, inpatient, greater than 2 midnights, for acute hypoxic respiratory failure secondary to healthcare associated pneumonia, NSTEMI, VIKTOR, fluid overload Diagnoses Acute on chronic respiratory failure with hypoxia J96.21 Healthcare-associated pneumonia J18.9 CHF exacerbation I50.9 Fluid overload E87.70 Acute kidney injury superimposed on CKD N17.9; N18.9 Non-ST elevation NV (NSTEMI) I21.4 Diabetes mellitus E11.9 COPD (chronic obstructive pulmonary disease) J44.9 Congestive heart failure I50.9 Heart failure type: unspecified Heart failure chronicity: chronic Renal insufficiency N28.9 Obstructive sleep apnea G47.33
[2022-10-04] VITALS (32 sets, daily range): BP systolic 114–172; BP diastolic 52–99; PULSE 50–133; RESP 9–26; TEMP 36.4–37.1; O2SAT 82–94
--- NOTE | 2022-10-04 02:09 | ECG_ITS ---
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 Measurements Intervals [place] Rate: 55 P: 81 ND: 192 QRS: 172 QRSD: 131 T: 120 QT: 493 QTc: 475 Interpretive Statements SINUS BRADYCARDIA INTRAVENTRICULAR CONDUCTION DELAY [130+ ms QRS DURATION] POSSIBLE RIGHT VENTRICULAR HYPERTROPHY [SOME/ALL OF: PROMINENT R IN V1, LATE TRANSITION, RAD, TREVER, SSS] POSSIBLE ANTERIOR MYOCARDIAL INFARCTION , OF INDETERMINATE AGE [30 ms Q WAVE IN V3/V4, OR R < 0.2 mV IN V4] Compared to ECG 10/03/2022 22:22:05 Intraventricular conduction delay now present Myocardial infarct finding now present Sinus rhythm no longer present Electronically Signed On 10-04-2022 9:57:41 CDT by Truman Sharp M.D. [id number]
[2022-10-04] MEDS: pantoprazole 40 mg SDV IVP (02:23)
[2022-10-04 02:25] LABS: Glucose Point of Care 225 mg/dL (70-110)
[2022-10-04 02:31] LABS: Basophils % 0.2 %; Eosinophils # 0.1 10^3/uL (0.0-0.8); Eosinophils % 0.8 %; Hematocrit 37.2 % (42.0-52.0); Hemoglobin 11.3 g/dL (11.7-16.6); Lymphocytes # 0.7 10^3/uL (0.8-4.8); Mean Corpuscular HGB Conc 30.4 g/dL (30.0-36.0); Mean Corpuscular Hemoglobin 27.4 pg (28.0-34.0); Mean Corpuscular Volume 90.1 fl (80-94); Mean Platelet Volume 10.6 fL (7.4-10.4); Monocytes # 0.3 10^3/uL (0.2-0.9); Monocytes % 2.1 %; Neutrophils # 10.61 10^3/uL (1.8-7.7); Neutrophils % 90.2 %; Nucleated Red Blood Cells % 0 %; Platelet Count 185 10^3/cmm (130-400); Red Blood Count 4.13 10^6/uL (4.1-5.3); Red Cell Distribution Width 15.9 % (12.1-15.1); White Blood Count 11.8 10^3/uL (4.0-10.0)
[2022-10-04 02:46] LABS: Blood Urea Nitrogen 57 mg/dL (8-23); Calcium 8.7 mg/dL (8.5-10.5); Carbon Dioxide 26 mmol/L (22-29); Chloride 92 mmol/L (98-107); Glucose 204 mg/dL (65-115); Magnesium 1.9 mg/dL (1.7-2.3); Osmolality Calculated 298 mOsm/kg (285-295); Sodium 133 mmol/L (136-145)
[2022-10-04 02:49] LABS: Troponin 5 6HR 26.01 ng/L (0-15)
[2022-10-04] MEDS: meropenem 1,000 MG in sodium chloride 0.9% (plus) 50 ML 100 MG IV ×3 (02:51→21:14)
[2022-10-04 02:55] LABS: Procalcitonin 0.68 ng/mL (0-0.5); Thyroid Stimulating Hormone 0.82 uIU/mL (0.27-4.20)
[2022-10-04 03:05] LABS: Troponin 5 6HR Delta -5.99 ng/L (0-12)
[2022-10-04 03:06] LABS: C Reactive Protein 277.7 mg/L (0.0-4.9); Chol HDL Ratio 4.21 mg/dL (1.0-5.00); Cholesterol 160 mg/dL (0-200); HDL Cholesterol 38 mg/dL (60-100); LDL Cholesterol Calculated 103 mg/dL (50-129); LDL HDL Ratio 2.71 RATIO (0.00-3.22); Triglycerides 96 mg/dL (0-150)
--- NOTE | 2022-10-04 05:00 | PC.NURSE ---
Patient was profusely sweating and needed an entire bed change. The patient had previously refused a gown but needed to change into a gown because his clothes were wet with sweat. Multiple tele patches needed to be changed due to patient sweating. Patient was unsteady getting up and assisted by 2 nurses. After bed change patient stated he felt much better.
[2022-10-04 06:21] LABS: Glucose Point of Care 265 mg/dL (70-110)
[2022-10-04] MEDS: insulin glargine 100 units/1 mL 20 UNIT SUBCUT (06:31)
[2022-10-04] MEDS: ipratropium-albuterol 3 mL Neb INHALATION ×4 (07:22→19:30)
[2022-10-04] MEDS: budesonide 0.5 mg/2 mL Neb INHALATION ×2 (07:22→19:30)
[2022-10-04 08:14] LABS: Glucose Point of Care 281 mg/dL (70-110)
[2022-10-04] MEDS: morphine ER (12 HR) 30 mg tablet PO (08:52)
[2022-10-04] MEDS: pregabalin 150 mg Capsule PO ×2 (08:52→17:37)
[2022-10-04] MEDS: spironolactone 25 mg Tablet PO (08:53)
[2022-10-04] MEDS: aspirin 81 mg EC Tablet PO (08:53)
[2022-10-04] MEDS: isosorbide dinitrate 20 mg Tablet PO ×2 (08:53→17:57)
[2022-10-04] MEDS: apixaban 5 mg Tablet PO ×2 (08:54→17:37)
[2022-10-04] MEDS: bumetanide 0.25 mg/mL SDV 4 mL 1 MG IVP ×2 (08:54→21:25)
[2022-10-04] MEDS: insulin lispro 100 unit/1 mL SUBCUT ×3 (09:11→17:58)
--- NOTE | 2022-10-04 11:20 | PM.PN ---
Subjective Subjective: seen this AM. states he is feeling much improved seen in 5L NC (baseline 3L) was 10L earlier in the AM tolerationg PO well still having SOB and fatigue. refused BIPAP last evening. Vitals/I&O/Wt Last Vital Signs Temp 98.7 F 10/04/22 08:00 Pulse 60 10/04/22 11:14 Resp 16 10/04/22 11:14 BP 137/65 10/04/22 10:00 Pulse Ox 92 10/04/22 11:14 O2 Del Method Nasal Cannula 10/04/22 11:14 O2 Flow Rate 4 10/04/22 11:14 FiO2 40 10/03/22 22:42 10/03/22 10/04/22 10/04/22 22:59 06:59 14:59 Intake Total 50 / 50 650 / 700 Output Total 600 / 600 Balance 50 / 50 50 / 100 Weight last 48 hrs Weight 220 lb Physical Exam Const: COMMON NORMALS: no acute distress and patient oriented x3 HENMT: COMMON NORMALS: normocephalic HEAD & SCALP: normocephalic Eye: COMMON NORMALS: Equal, round and reactive pupils present PUPIL: Yes Equal, round and reactive pupils present Neck/C-Spine: COMMON NORMALS: no JVD Lymph: LYMPHATIC: no lymphadenopathy noted Resp: COMMON NORMALS: normal respiratory effort, No retractions and No use of accessory muscles AUSCULTATION: crackles and wheezes Cardio: COMMON NORMALS: no JVD, regular rate, regular rhythm, S1 normal heart sound present and S2 normal heart sound present RATE: regular rate RHYTHM: regular rhythm HEART SOUNDS: S1 normal heart sound present and S2 normal heart sound present GI: COMMON NORMALS: Normal to inspection, nondistended, normoactive bowel sounds present, Soft to palpation and non-tender PALPATION: Yes Soft to palpation : COMMON NORMALS: Yes no CVA tenderness BLADDER/KIDNEY EXAM: Yes no CVA tenderness Back/Pelvis: COMMON NORMALS: no CVA tenderness Extremity: COMMON NORMALS: no calf tenderness NARRATIVE EXTREMITY EXAM: 1+ pitting edema Neuro: COMMON NORMALS: patient oriented x3, CN's II-XII intact bilaterally, moves all extremities and no focal motor deficits OTHER: Left foot, diabetic ulcer dressed Psych: COMMON NORMALS: mental status grossly normal Data 10/04/22 02:21 10/04/22 02:21 Micro: Microbiology 10/03/22 20:32 Blood Culture - Preliminary Blood SPECIMEN COLLECTED 10/03/22 20:25 Blood Culture - Preliminary Blood SPECIMEN COLLECTED A&P Assessment and plan (1) Acute on chronic respiratory failure with hypoxia: (2) Healthcare-associated pneumonia: (3) CHF exacerbation: (4) Fluid overload: (5) Acute kidney injury superimposed on CKD: (6) Non-ST elevation DE (NSTEMI): (7) Diabetes mellitus: (8) COPD (chronic obstructive pulmonary disease): (9) Congestive heart failure: Qualifiers: Heart failure chronicity: chronic Heart failure type: unspecified Qualified Code(s): I50.9 - Heart failure, unspecified (10) Renal insufficiency: (11) Obstructive sleep apnea: Plan Acute hypoxic respiratory failure -Secondary to healthcare associated pneumonia -Patient is already on daptomycin, and ceftazidime from previous hospitalization at [facility] -Started on Vanc and meropenem -CT of the chest shows multifocal bilateral pneumonia -Currently on 6 L nasal cannula, have recommended for him to use BiPAP at night time -pending sputum and blood cultures -continue Duonebs, budesonide Fluid overload, diastolic CHF exacerbation -Has received Lasix at home and in the ambulance ride over to [facility] -Bumex 1 mg every 12 hour. started the AM. -improved volume status -Cardiac echo pending NSTEMI -Likely type II supply/demand Babs from acute respiratory failure as above however cannot rule out underlying cardiac etiology -Serial EKGs -troponins not showing STEMI -pending ECHO VIKTOR on CKD, - monitor creatinine closely -showing some elevation Type 2 diabetes mellitus, -continue Lantus 20 units every morning, low-dose sliding scale Chronic pain -continue home morphine NOÉ -recommended BiPAP use Atrial fibrillation -continue Eliquis Diabetic foot wound - to dress in room. Eliquis for DVT prophylaxis Attestations Medical Necessity Statement*: heart failure Coding Level of Care Code 08721 Diagnoses Acute on chronic respiratory failure with hypoxia J96.21 Healthcare-associated pneumonia J18.9 CHF exacerbation I50.9 Fluid overload E87.70 Acute kidney injury superimposed on CKD N17.9; N18.9 Non-ST elevation DE (NSTEMI) I21.4 Diabetes mellitus E11.9 COPD (chronic obstructive pulmonary disease) J44.9 Congestive heart failure I50.9 Heart failure chronicity: chronic Heart failure type: unspecified Renal insufficiency N28.9 Obstructive sleep apnea G47.33
[2022-10-04 11:29] LABS: Glucose Point of Care 281 mg/dL (70-110)
--- NOTE | 2022-10-04 15:04 | PC.NURSE ---
Patient's PICC line dressing was changed on 10/02/22 at [facility].
[2022-10-04 17:27] LABS: Glucose Point of Care 301 mg/dL (70-110)
[2022-10-04] MEDS: metformin XR 500 MG Tablet PO (18:27)
[2022-10-04] MEDS: alteplase 1 mg/mL SDV 2 mL 2 MG INTRACATH (18:48)
[2022-10-04 20:49] LABS: Glucose Point of Care 350 mg/dL (70-110)
[2022-10-04] MEDS: terazosin 5 mg Capsule PO (21:26)
--- NOTE | 2022-10-04 23:00 | USCV_ITS ---
Juan M Jara Age: 76 Gender: M : 1945 Exam Date: 10/04/2022 17:57 Ordering Phys: Chino Morrell MD Technologist: KOURTNEY [place] [facility] [place]: sob BP: / HR: 64 Rhythm: Sinus Technical Quality: Adequate MEASUREMENTS (Male / Female) Normal Values 2D ECHO LV Diastolic Diameter PLAX 6.5 cm 4.2 - 5.9 / 3.9 - 5.3 cm LV Systolic Diameter PLAX 4.7 cm IVS Diastolic Thickness 0.9 cm 0.6 - 1.0 / 0.6 - 0.9 cm IVS Systolic Thickness 1.3 cm LVPW Diastolic Thickness 0.9 cm 0.6 - 1.0 / 0.6 - 0.9 cm LVPW Systolic Thickness 1.3 cm LVOT Diameter 2.1 cm LV Ejection Fraction 2D Teich 51.4 % LV Ejection Fraction MOD 2C 47.1 % LV Ejection Fraction 2C AL 47.4 % LA Diameter 4.1 cm IVC Diameter 2.3 cm M-MODE Aortic Annulus Diameter 4.1 cm LA Ao Ratio MM 1.2 MV E Point Septal Separation 0.1 cm DOPPLER AV Peak Velocity 136.0 cm/s LVOT Peak Velocity 115.0 cm/s AV Area Cont Eq vti 3.4 cm squared AV Area Cont Eq pk 3.0 cm squared MV Area PHT 2.7 cm squared Mitral E to A Ratio 0.8 MV E' Velocity 49.0 cm/s Mitral E to MV E' Ratio 12.1 Mitral E to LV E' Lateral Ratio 12.6 Mitral E to LV E' Septal Ratio 11.8 TR Peak Velocity 345.0 cm/s TR Peak Gradient 47.6 mmHg TV Peak E Velocity 56.0 cm/s Right Atrial Pressure 9.0 mmHg Pulmonary Artery Systolic Pressu 56.6 mmHg PV Peak Velocity 163.0 cm/s FINDINGS Left Ventricle Normal left ventricular size, systolic function and wall thickness, with no regional wall motion abnormalities. Left ventricular ejection fraction is estimated at 60 %. Grade I/IV diastolic dysfunction (abnormal relaxation filling pattern), normal to mildly elevated filling pressures. Right Ventricle Normal right ventricular size and systolic function. Moderate pulmonary hypertension, RVSP 56.6 mmHg. Right Atrium Mildly increased right atrial size. Left Atrium Mildly increased left atrial size. Mitral Valve Structurally normal mitral valve without significant stenosis or prolapse. There is no mitral regurgitation. Aortic Valve Structurally normal aortic valve without significant sclerosis or stenosis. There is no aortic regurgitation. Tricuspid Valve Structurally normal tricuspid valve. Mild tricuspid valve regurgitation. Pulmonic Valve Pulmonic valve not well visualized. Pericardium Normal pericardium without effusion. Aorta Normal ascending aorta dimension. IVC The inferior vena cava is normal in size. It does not quite collapse normally with respiration. Estimated right atrial pressure 5 to 10 mmHg. CONCLUSIONS Normal left ventricular size, systolic function and wall thickness, with no regional wall motion abnormalities. Left ventricular ejection fraction is estimated at 60 %. Grade I/IV diastolic dysfunction (abnormal relaxation filling pattern), normal to mildly elevated filling pressures. Normal right ventricular size and systolic function. Moderate pulmonary hypertension, RVSP 56.6 mmHg. Mildly increased right atrial size. Mildly increased left atrial size. The inferior vena cava is normal in size. It does not quite collapse normally with respiration. Estimated right atrial pressure 5 to 10 mmHg. There are no prior echocardiogram studies to compare. Dr. Truman Sharp MD (Electronically Signed) Final Date: 05 Oct 2022 10:12 S
--- NOTE | 2022-10-04 23:29 | USR_ITS ---
PROCEDURE INFORMATION: Exam: US Duplex Lower Extremity Veins, Bilateral Exam date and time: 10/04/2022 6:24 PM Age: 76 years old Clinical indication: Edema, localized; Lower extremity, bilateral; Additional info: Swelling TECHNIQUE: Imaging protocol: Real-time duplex ultrasound of the bilateral extremities with 2-D gannon scale, color Doppler flow and spectral waveform analysis including responses to compression and other maneuvers (when performed) with image documentation. Complete exam focused on the lower extremity veins. COMPARISON: MR foot RT wo/w con [id number] 05/04/2019 7:36 AM FINDINGS: Right deep veins: Unremarkable. The common femoral, femoral, proximal profunda femoral and popliteal veins are patent without thrombus. Normal Doppler waveforms. Normal compressibility and/or augmentation response. Right superficial veins: Saphenofemoral junction is patent without thrombus. Left deep veins: Unremarkable. The common femoral, femoral, proximal profunda femoral and popliteal veins are patent without thrombus. Normal Doppler waveforms. Normal compressibility and/or augmentation response. Left superficial veins: Saphenofemoral junction is patent without thrombus. Soft tissues: Unremarkable. US/[place] [id number] IMPRESSION: No evidence of deep vein thrombosis.
[2022-10-04] MEDS: vancomycin 1,500 MG/300 ML PIGGYBACK 200 MG IV (23:45)
[2022-10-05] VITALS (19 sets, daily range): BP systolic 121–175; BP diastolic 72–84; PULSE 48–87; RESP 16–25; TEMP 36.2–36.4; O2SAT 73–99
[2022-10-05] MEDS: pantoprazole 40 mg SDV IVP (01:18)
--- NOTE | 2022-10-05 01:23 | PC.PHAR ---
Vancomycin Trough scheduled for 10/060, please hold 10/06 2300 dose until drawn Will continue to follow. Thank you, Deloris Nicole h
[2022-10-05] MEDS: meropenem 1,000 MG in sodium chloride 0.9% (plus) 50 ML 100 MG IV ×2 (02:40→11:10)
--- NOTE | 2022-10-05 05:27 | PC.NURSE ---
Patient admitted with single lumen PICC placed at another facility. [facility] noted PICC was occluded. Cath flow ordered and instilled by [facility] RN. Attempted to draw cath-flow and flush PICC. Line remains occluded. External section of line appears bent, kinked, and flattened. Hospitalist iron carrier updated via [employer]. PIV placed to avoid disruption in antibiotic therapy. molding supervisor also notified in case arrangements needed to made for line replacement. Another attempt made to draw and flush PICC line. [place] successful. Replaced lower portion of PICC dressing. Did not replace upper portion over insertion site as biopatch and occlusive dressing remain intact.
[2022-10-05 06:18] LABS: Basophils % 0.1 %; Eosinophils # 0.1 10^3/uL (0.0-0.8); Eosinophils % 0.6 %; Hematocrit 35.3 % (42.0-52.0); Hemoglobin 10.9 g/dL (11.7-16.6); Lymphocytes # 1.1 10^3/uL (0.8-4.8); Lymphocytes % 9.4 %; Mean Corpuscular HGB Conc 30.9 g/dL (30.0-36.0); Mean Corpuscular Hemoglobin 27.5 pg (28.0-34.0); Mean Corpuscular Volume 88.9 fl (80-94); Mean Platelet Volume 11.1 fL (7.4-10.4); Neutrophils # 9.24 10^3/uL (1.8-7.7); Neutrophils % 80.3 %; Nucleated Red Blood Cells % 0 %; Platelet Count 202 10^3/cmm (130-400); Red Blood Count 3.97 10^6/uL (4.1-5.3); Red Cell Distribution Width 15.9 % (12.1-15.1); White Blood Count 11.5 10^3/uL (4.0-10.0)
[2022-10-05 06:24] LABS: Alanine Aminotransferase 17 U/L (0-41); Albumin Level 3.2 g/dL (3.5-5.2); Alkaline Phosphatase 101 U/L (40-130); Aspartate Amino Transferase 10 U/L (0-40); Blood Urea Nitrogen 75 mg/dL (8-23); Calcium 8.8 mg/dL (8.5-10.5); Carbon Dioxide 27 mmol/L (22-29); Chloride 94 mmol/L (98-107); Globulin 3.6 g/dL (1.3-4.6); Glucose 228 mg/dL (65-115); Osmolality Calculated 303 mOsm/kg (285-295); Sodium 132 mmol/L (136-145); Total Bilirubin 0.2 mg/dL (0.15-1.2); Total Protein 6.8 g/dL (6.6-8.7)
[2022-10-05] MEDS: insulin glargine 100 units/1 mL 20 UNIT SUBCUT (06:25)
[2022-10-05 06:36] LABS: Glucose Point of Care 243 mg/dL (70-110)
[2022-10-05] MEDS: budesonide 0.5 mg/2 mL Neb INHALATION (07:27)
[2022-10-05] MEDS: ipratropium-albuterol 3 mL Neb INHALATION ×2 (07:27→11:18)
[2022-10-05 08:01] LABS: Glucose Point of Care 226 mg/dL (70-110)
[2022-10-05] MEDS: morphine ER (12 HR) 30 mg tablet PO (09:18)
[2022-10-05] MEDS: aspirin 81 mg EC Tablet PO (09:18)
[2022-10-05] MEDS: metformin XR 500 MG Tablet PO (09:18)
[2022-10-05] MEDS: pregabalin 150 mg Capsule PO (09:18)
[2022-10-05] MEDS: isosorbide dinitrate 20 mg Tablet PO (09:19)
[2022-10-05] MEDS: spironolactone 25 mg Tablet PO (09:20)
[2022-10-05] MEDS: bumetanide 0.25 mg/mL SDV 4 mL 1 MG IVP (09:20)
[2022-10-05] MEDS: apixaban 5 mg Tablet PO (09:20)
[2022-10-05] MEDS: insulin lispro 100 unit/1 mL SUBCUT (09:20)
--- NOTE | 2022-10-05 11:31 | P.DS_ITS ---
Discharge Providers Date of Admission: 10/03/22 22:41 Date of Discharge: October 05, 2022 Attending Provider at Admission: Chino Morrell MD Attending Provider at Discharge: Almaz Umanzor MD Primary Care Provider: Dustin Carmona DO Diagnoses at Discharge Discharge Diagnosis (1) Acute on chronic respiratory failure with hypoxia: Status: Acute (2) Healthcare-associated pneumonia: Status: Acute (3) CHF exacerbation: Status: Acute (4) Fluid overload: Status: Acute (5) Acute kidney injury superimposed on CKD: Status: Acute (6) Non-ST elevation DC (NSTEMI): Status: Acute (7) Diabetes mellitus: Status: Acute (8) COPD (chronic obstructive pulmonary disease): Status: Acute (9) Congestive heart failure: Status: Acute Qualifiers: Heart failure type: unspecified Heart failure chronicity: chronic Qualified Code(s): I50.9 - Heart failure, unspecified (10) Renal insufficiency: Status: Acute (11) Obstructive sleep apnea: Status: Acute Reason for Visit Reason for Visit: SOB Hospital Course Hospital Course 76-year-old male who was recently discharged from [facility] on 3 weeks of IV antibiotics for his osteomyelitis of the foot, he does carry history of sleep apnea, coronary disease with 3 stents, insulin-dependent diabetes, Eliquis for A-fib,, presented to the hospital for worsening of shortness of breath, at baseline he uses 3 L of oxygen, does not smoke on daily basis, in the hospital he was diuresed with IV Bumex, patient did very well with improvement of his symptoms, patient is stating he is not able to lay flat and he never sleeps flat in the bed, I asked him to increase his Lasix dose to twice a day in case of worsening of symptoms and take extra potassium whenever he takes extra Lasix. Patient and his both updated. They understood instructions very well. Echo is showing 60% EF with grade 1 diastolic dysfunction. Home oxygen did show that he did well on 3 L of oxygen before discharge. He wants to follow-up with his open source developer at [facility], he does have moderate pulmonary hypertension will need up titration/optimization of his medical therapy Physical Exam Narrative: No clinical signs of fluid overload Mild crackles noted on base of lungs Currently on 3 L Pleasant and cooperative Skin wrinkling noted Lower extremity 1+ edema Discharge Data Studies Completed and Pending Completed Studies During Hospitalization Category Date Time Status CT chest wo con [id number] Stat Cat Scan 10/03/22 23:00 Completed XR chest 1V portable [id number] Stat Exams 10/03/22 19:57 Completed CV. echo complete* [id number] Stat Ultrasound 10/04/22 23:00 Completed Pending at discharge Category Date Time Status Blood Culture Stat Lab 10/03/22 20:32 Results Sputum Culture and Gram Stain Stat Lab 10/04/22 12:45 Results Vancomycin Trough Timed Lab 10/06/22 22:00 [place] [id number] Stat Ultrasound 10/04/22 23:29 Taken Radiology Impressions Chest X-Ray 10/03/22 19:57 IMPRESSION: Patchy bilateral pneumonia should be followed to resolution. Chest CT 10/03/22 23:00 IMPRESSION: 1. Multifocal severe bilateral patchy pneumonia. This needs to be followed up closely to resolution. 2. Likely reactive bulky mediastinal lymphadenopathy. 3. Multiple chronic findings above with atherosclerosis, COPD, etc. COMMENTS: In the absence of a history or active diagnosis of lung cancer, it is recommended that this patient with emphysema be evaluated for enrollment in a low dose CT lung cancer screening program. Laboratory Results WBC 11.5 10^3/uL (4.0-10.0) H 10/05/22 05:45 RBC 3.97 10^6/uL (4.1-5.3) L 10/05/22 05:45 Hgb 10.9 g/dL (11.7-16.6) L 10/05/22 05:45 Hct 35.3 % (42.0-52.0) L 10/05/22 05:45 MCV 88.9 fl (80-94) 10/05/22 05:45 MCH 27.5 pg (28.0-34.0) L 10/05/22 05:45 MCHC 30.9 g/dL (30.0-36.0) 10/05/22 05:45 RDW 15.9 % (12.1-15.1) H 10/05/22 05:45 Plt Count 202 10^3/cmm (130-400) 10/05/22 05:45 MPV 11.1 fL (7.4-10.4) H 10/05/22 05:45 Neut % (Auto) 80.3 % 10/05/22 05:45 Lymph % (Auto) 9.4 % 10/05/22 05:45 [place] % (Auto) 9.0 % 10/05/22 05:45 Eos % (Auto) 0.6 % 10/05/22 05:45 Baso % (Auto) 0.1 % 10/05/22 05:45 Neut # (Auto) 9.24 10^3/uL (1.8-7.7) H 10/05/22 05:45 Lymph # (Auto) 1.1 10^3/uL (0.8-4.8) 10/05/22 05:45 [place] # (Auto) 1.0 10^3/uL (0.2-0.9) H 10/05/22 05:45 Eos # (Auto) 0.1 10^3/uL (0.0-0.8) 10/05/22 05:45 Baso # (Auto) 0.0 10^3/uL (0.0-0.1) 10/05/22 05:45 Nucleated RBC % (auto) 0 % 10/05/22 05:45 Nucleated RBCs # 0.0 /100WBC 10/05/22 05:45 Specimen Type Arterial 10/03/22 20:31 Sample Site Radial, left 10/03/22 20:31 ABG pH 7.37 (7.35-7.45) 10/03/22 20:31 ABG pCO2 49.6 mmHg (35-45) H 10/03/22 20:31 ABG pO2 98.5 mmHg (80.0-100.0) 10/03/22 20:31 ABG HCO3 28.8 mmol/L (22-26) H 10/03/22 20:31 ABG Base Excess 2.7 mmol/L (-2.0-2.0) H 10/03/22 20:31 Renzo Test Pos 10/03/22 20:31 Hematocrit 36.6 % (42-52) L 10/03/22 20:31 Hgb O2 Saturation 96.2 % (95-100) 10/03/22 20:31 Carboxyhemoglobin 1.8 %THgb (0.4-20.1) 10/03/22 20:31 Methemoglobin 0.3 % (0.4-1.5) L 10/03/22 20:31 Total Hemoglobin 11.9 g/dL (14-18) L 10/03/22 20:31 O2 Delivery Device Not Reportable 10/03/22 20:31 FiO2 60.0 % 10/03/22 20:31 Bottle Filler ID [email or web address] 10/03/22 20:31 Sodium 132 mmol/L (136-145) L 10/05/22 05:45 Potassium 5.0 mmol/L (3.5-5.1) 10/05/22 05:45 Chloride 94 mmol/L (98-107) L 10/05/22 05:45 Carbon Dioxide 27 mmol/L (22-29) 10/05/22 05:45 Anion Gap 16.0 (5-19) 10/05/22 05:45 BUN 75 mg/dL (8-23) H 10/05/22 05:45 Creatinine 1.7 mg/dL (0.7-1.2) H 10/05/22 05:45 GFR Calculation Not Reportable 10/05/22 05:45 Glucose 228 mg/dL (65-115) H 10/05/22 05:45 POC Glucose 226 mg/dL (70-110) H 10/05/22 07:57 Calculated Osmolality 303 mOsm/kg (285-295) H 10/05/22 05:45 Lactic Acid 1.0 mmol/L (0.5-2.2) 10/04/22 06:18 Calcium 8.8 mg/dL (8.5-10.5) 10/05/22 05:45 Phosphorus 5.0 mg/dL (2.5-4.5) H 10/04/22 02:21 Magnesium 1.9 mg/dL (1.7-2.3) 10/04/22 02:21 Total Bilirubin 0.2 mg/dL (0.15-1.2) 10/05/22 05:45 AST 10 U/L (0-40) 10/05/22 05:45 ALT 17 U/L (0-41) 10/05/22 05:45 Alkaline Phosphatase 101 U/L (40-130) 10/05/22 05:45 Troponin T Baseline 32 ng/L (0-15) H 10/03/22 19:50 Troponin T 120 Minute 31.40 ng/L (0-15) H 10/03/22 22:22 Delta Troponin T -0.60 ABS# (0-10) L 10/03/22 22:22 Troponin T Hi Sens 6Hr 26.01 ng/L (0-15) H 10/04/22 02:21 Troponin T Hi Sens 6Hr Delta -5.99 ng/L (0-12) L 10/04/22 02:21 C-Reactive Protein 277.7 mg/L (0.0-4.9) H 10/03/22 02:21 NT-Pro-B Natriuret Pep 326 pg/mL (0-450) 10/03/22 19:50 Total Protein 6.8 g/dL (6.6-8.7) 10/05/22 05:45 Albumin 3.2 g/dL (3.5-5.2) L 10/05/22 05:45 Globulin 3.6 g/dL (1.3-4.6) 10/05/22 05:45 Triglycerides 96 mg/dL (0-150) 10/03/22 02:21 Cholesterol 160 mg/dL (0-200) 10/03/22 02:21 LDL Cholesterol, Calc 103 mg/dL (50-129) 10/03/22 02:21 HDL Cholesterol 38 mg/dL (60-100) L 10/03/22 02:21 LDL/HDL Ratio 2.71 RATIO (0.00-3.22) 10/03/22 02:21 Cholesterol/HDL Ratio 4.21 mg/dL (1.0-5.00) 10/03/22 02:21 Procalcitonin 0.68 ng/mL (0-0.5) H 10/03/22 02:21 TSH 0.82 uIU/mL (0.27-4.20) 10/03/22 02:21 SARS-CoV-2 Ag (Rapid) negative (Negative) 10/03/22 20:34 Vitals Last Vital Signs Temp 97.6 F 10/05/22 05:00 Pulse 70 10/05/22 11:21 Resp 16 10/05/22 11:21 BP 166/84 10/05/22 05:00 Pulse Ox 94 10/05/22 11:21 O2 Del Method Nasal Cannula 10/05/22 11:21 O2 Flow Rate 3 10/05/22 11:21 FiO2 40 10/03/22 22:42 Discharge Plan Discharge Patient Disposition: Home Condition: Fair Prescriptions: New furosemide [Lasix] 40 mg tablet 40 mg PO DAILY Qty: 60 1RF Rx Instructions: Take 40 mg twice a day if symptom worsens, take potassium with it Continued (DME) oxygen-air delivery systems Device See Rx Instructions .ROUTE .MEDSUPPLY Qty: 1 Rx Instructions: As directed Eliquis 5 mg tablet 5 mg PO BID Qty: 180 3RF Trelegy Ellipta 100-62.5-25 mcg blister with device 1 inh inhalation DAILY Qty: 60 11RF isosorbide dinitrate 20 mg tablet 20 mg PO BID Qty: 180 3RF Rx Instructions: allow nitrate-free interval of 12-14 hrs per 24-hr period (DME) blood-glucose meter Kit See Rx Instructions .Route Qty: 1 0RF Rx Instructions: As directed for monitoring DM, E11.9 spironolactone 25 mg tablet 25 mg PO DAILY Qty: 90 3RF albuterol sulfate 2.5 mg /3 mL (0.083 %) solution for nebulization 2.5 mg inhalation QID Qty: 180 3RF (DME) nebulizers Mis See Rx Instructions .ROUTE .MEDSUPPLY Qty: 1 0RF Rx Instructions: As directed albuterol sulfate [Ventolin HFA] 90 mcg/actuation HFA aerosol inhaler 2 puff inhalation QID PRN (Reason: shortness of breath or wheezing) Qty: 8.5 11RF insulin glargine [Basaglar KwikPen U-100 Insulin] 100 unit/mL (3 mL) insulin pen 20 unit SUBCUT QAM Qty: 15 11RF morphine 30 mg tablet extended release 30 mg PO Q12H 30 Days Qty: 60 0RF (DME) pen needle, diabetic [Unifine Pentips] 31 gauge x 1/4 needle See Rx Instructions .Route Qty: 100 3RF Rx Instructions: As directed (DME) test strips, lancets, needles See Rx Instructions .Route .MEDSUPPLY Qty: 100 3RF Rx Instructions: As directed for checking and treatment of DM, E11.9 metformin 500 mg tablet extended release 24 hr 500 mg PO BID terazosin 5 mg Capsule 5 mg PO DAILY aspirin 81 mg Tablet,Chewable 81 mg PO DAILY ceftazidime 2 gram Recon Soln 2 g IV Q8H pregabalin 150 mg capsule See Rx Instructions .ROUTE .COMPLEX Rx Instructions: 300 mg in the morning / 150 mg in the evening colchicine 0.6 mg Capsule 1.2 mg PO DAILY PRN (Reason: gout) daptomycin 350 mg Recon Soln 700 mg IV Q24H Discontinued prednisone 5 mg tablet 5 mg PO DAILY PRN (Reason: inflammatory pain) Qty: 90 1RF furosemide 80 mg tablet 80 mg PO DAILY Discharge Orders: Discharge Order (Routine); Ordered 10/05/22 Ordered By: Almaz Umanzor Referrals: Dustin Carmona DO [Primary Care Provider] - 2 weeks Patient Instructions: Opioid Safety Discharge Attestations Time Spent in Discharge Care*: greater than 30 min Quality Metrics Clinical Quality Measures [ No reported AMI, CVA or VTE this stay] Coding Level of Care Code Acute Code for Chg Fwd Diagnoses Acute on chronic respiratory failure with hypoxia J96.21 Healthcare-associated pneumonia J18.9 CHF exacerbation I50.9 Fluid overload E87.70 Acute kidney injury superimposed on CKD N17.9; N18.9 Non-ST elevation DC (NSTEMI) I21.4 Diabetes mellitus E11.9 COPD (chronic obstructive pulmonary disease) J44.9 Congestive heart failure I50.9 Heart failure type: unspecified Heart failure chronicity: chronic Renal insufficiency N28.9 Obstructive sleep apnea G47.33
== END 2022-10-05 13:15 | disposition home health service (06) | DRG 280 ==
LOC: ER 22:17 → CSU 23:43
PROVIDERS: Family Medicine; Admitting Provider Family Medicine; Emergency Provider Emergency Medicine; PCP Family Medicine; Visit Provider Internal Medicine
DX: I13.0 Hypertensive heart and chronic kidney disease with heart failure and stage 1 through stage 4 chronic kidney disease, or unspecified chronic kidney disease (principal); I50.33 Acute on chronic diastolic (congestive) heart failure; I21.4 Non-ST elevation (NSTEMI) myocardial infarction; J18.9 Pneumonia, unspecified organism; J96.21 Acute and chronic respiratory failure with hypoxia; J44.0 Chronic obstructive pulmonary disease with (acute) lower respiratory infection; M86.9 Osteomyelitis, unspecified; N17.9 Acute kidney failure, unspecified; E11.22 Type 2 diabetes mellitus with diabetic chronic kidney disease; N18.9 Chronic kidney disease, unspecified; G47.33 Obstructive sleep apnea (adult) (pediatric); I25.10 Atherosclerotic heart disease of native coronary artery without angina pectoris; Z95.5 Presence of coronary angioplasty implant and graft; I48.91 Unspecified atrial fibrillation; Z99.81 Dependence on supplemental oxygen; Z87.891 Personal history of nicotine dependence; I27.20 Pulmonary hypertension, unspecified; Z79.01 Long term (current) use of anticoagulants; Z79.51 Long term (current) use of inhaled steroids; Z79.4 Long term (current) use of insulin; Z79.84 Long term (current) use of oral hypoglycemic drugs; Z79.82 Long term (current) use of aspirin; G89.29 Other chronic pain; E87.70 Fluid overload, unspecified; D63.1 Anemia in chronic kidney disease
CPT/HCPCS: 36415; 36416; 36569; 36592; 36600; 71045; 71250; 80048; 80053; 80061; 82805; 82962; 83605; 83735; 83880; 84100; 84145; 84443; 84484; 85025; 86140; 87040; 87070; 87205; 87426; 93005; 93306; 93970; 94640; 94664; 94760; 96365; 96372; 96375; 96376; 99291; C9113; J1100; J1815; J2185; J2543; J2997; J3370; J3490; J7626

== ENCOUNTER 2022-10-06 12:20 | Outpatient (CLI) | payer MEDICARE, OTHER, SELFPAY ==
[2022-10-06 12:34] LABS: Basophils # 0.1 10^3/uL (0.0-0.1); Basophils % 0.7 %; Eosinophils # 1.2 10^3/uL (0.0-0.8); Eosinophils % 10.9 %; Hematocrit 38.7 % (42.0-52.0); Hemoglobin 11.8 g/dL (11.7-16.6); Lymphocytes # 1.8 10^3/uL (0.8-4.8); Lymphocytes % 16.9 %; Mean Corpuscular HGB Conc 30.5 g/dL (30.0-36.0); Mean Corpuscular Hemoglobin 27.6 pg (28.0-34.0); Mean Corpuscular Volume 90.4 fl (80-94); Mean Platelet Volume 11.1 fL (7.4-10.4); Monocytes # 1.2 10^3/uL (0.2-0.9); Monocytes % 11.2 %; Neutrophils % 59.7 %; Nucleated Red Blood Cells % 0 %; Platelet Count 264 10^3/cmm (130-400); Red Blood Count 4.28 10^6/uL (4.1-5.3); White Blood Count 10.7 10^3/uL (4.0-10.0)
[2022-10-06 12:54] LABS: Alanine Aminotransferase 23 U/L (0-41); Albumin Level 3.6 g/dL (3.5-5.2); Alkaline Phosphatase 108 U/L (40-130); Anion Gap 17.2 (5-19); Aspartate Amino Transferase 20 U/L (0-40); C Reactive Protein 78.2 mg/L (0.0-4.9); Calcium 9.4 mg/dL (8.5-10.5); Carbon Dioxide 28 mmol/L (22-29); Chloride 93 mmol/L (98-107); Creatine Phosphokinase 79 U/L (39-308); Glucose 169 mg/dL (65-115); Osmolality Calculated 304 mOsm/kg (285-295); Potassium 5.2 mmol/L (3.5-5.1); Sodium 133 mmol/L (136-145); Total Bilirubin 0.2 mg/dL (0.15-1.2); Total Protein 7.6 g/dL (6.6-8.7)
[2022-10-06 12:59] LABS: Blood Urea Nitrogen 81 mg/dL (8-23)
== END 2022-10-06 12:21 | disposition home or self-care (01) ==
LOC: LAB 12:23
PROVIDERS: PCP Family Medicine; Visit Provider Internal Medicine Infectious Disease
DX: Z01.89 Encounter for other specified special examinations (principal)
CPT/HCPCS: 80053; 82550; 85025; 86140

== ENCOUNTER → 2022-10-09 15:01 | Outpatient (BNVA) | payer MEDICARE, OTHER, SELFPAY | PROVIDERS: PCP Family Medicine; Visit Provider Family Medicine | DX: I27.20 Pulmonary hypertension, unspecified (principal); J44.9 Chronic obstructive pulmonary disease, unspecified; G89.29 Other chronic pain; M86.9 Osteomyelitis, unspecified; N17.9 Acute kidney failure, unspecified; N18.9 Chronic kidney disease, unspecified; I50.9 Heart failure, unspecified; R13.10 Dysphagia, unspecified | CPT/HCPCS: 80048 ==

== ENCOUNTER 2022-10-13 13:21 | Outpatient (CLI) | payer MEDICARE, OTHER, SELFPAY ==
[2022-10-13 14:11] LABS: Basophils # 0.1 10^3/uL (0.0-0.1); Basophils % 0.4 %; Eosinophils # 0.9 10^3/uL (0.0-0.8); Eosinophils % 6.3 %; Hematocrit 37.4 % (42.0-52.0); Hemoglobin 11.1 g/dL (11.7-16.6); Lymphocytes # 1.3 10^3/uL (0.8-4.8); Mean Corpuscular HGB Conc 29.7 g/dL (30.0-36.0); Mean Corpuscular Hemoglobin 27.1 pg (28.0-34.0); Mean Corpuscular Volume 91.2 fl (80-94); Mean Platelet Volume 10.9 fL (7.4-10.4); Neutrophils # 10.74 10^3/uL (1.8-7.7); Neutrophils % 76.4 %; Nucleated Red Blood Cells % 0 %; Platelet Count 321 10^3/cmm (130-400); Red Cell Distribution Width 15.2 % (12.1-15.1); White Blood Count 14.1 10^3/uL (4.0-10.0)
[2022-10-13 14:36] LABS: Alanine Aminotransferase 15 U/L (0-41); Albumin Level 3.4 g/dL (3.5-5.2); Alkaline Phosphatase 87 U/L (40-130); Anion Gap 16.1 (5-19); Aspartate Amino Transferase 10 U/L (0-40); Blood Urea Nitrogen 45 mg/dL (8-23); C Reactive Protein 158.6 mg/L (0.0-4.9); Calcium 9.2 mg/dL (8.5-10.5); Carbon Dioxide 29 mmol/L (22-29); Chloride 99 mmol/L (98-107); Creatine Phosphokinase 55 U/L (39-308); Globulin 3.8 g/dL (1.3-4.6); Glucose 237 mg/dL (65-115); Osmolality Calculated 307 mOsm/kg (285-295); Potassium 5.1 mmol/L (3.5-5.1); Sodium 139 mmol/L (136-145); Total Bilirubin 0.2 mg/dL (0.15-1.2); Total Protein 7.2 g/dL (6.6-8.7)
== END 2022-10-13 13:22 | disposition home or self-care (01) ==
LOC: LAB 13:24
PROVIDERS: PCP Family Medicine; Visit Provider Surgery
DX: E11.621 Type 2 diabetes mellitus with foot ulcer (principal); N18.30 Chronic kidney disease, stage 3 unspecified; E11.22 Type 2 diabetes mellitus with diabetic chronic kidney disease
CPT/HCPCS: 80053; 82550; 85025; 86140

== ENCOUNTER 2022-10-20 19:18 | Outpatient (CLI) | payer MEDICARE, OTHER, SELFPAY ==
[2022-10-20 19:54] LABS: Basophils # 0.1 10^3/uL (0.0-0.1); Basophils % 0.7 %; Eosinophils # 0.8 10^3/uL (0.0-0.8); Eosinophils % 7.4 %; Hematocrit 37.8 % (42.0-52.0); Hemoglobin 11.7 g/dL (11.7-16.6); Lymphocytes # 1.5 10^3/uL (0.8-4.8); Lymphocytes % 14.5 %; Mean Corpuscular Volume 90.4 fl (80-94); Mean Platelet Volume 11.2 fL (7.4-10.4); Monocytes # 0.6 10^3/uL (0.2-0.9); Monocytes % 6.2 %; Neutrophils # 7.22 10^3/uL (1.8-7.7); Neutrophils % 70.9 %; Nucleated Red Blood Cells % 0 %; Platelet Count 216 10^3/cmm (130-400); Red Blood Count 4.18 10^6/uL (4.1-5.3); Red Cell Distribution Width 14.9 % (12.1-15.1); White Blood Count 10.2 10^3/uL (4.0-10.0)
[2022-10-20 20:07] LABS: Alanine Aminotransferase 16 U/L (0-41); Albumin Level 3.7 g/dL (3.5-5.2); Alkaline Phosphatase 102 U/L (40-130); Anion Gap 17.6 (5-19); Aspartate Amino Transferase 11 U/L (0-40); Blood Urea Nitrogen 26 mg/dL (8-23); C Reactive Protein 26.4 mg/L (0.0-4.9); Calcium 9.1 mg/dL (8.5-10.5); Carbon Dioxide 29 mmol/L (22-29); Chloride 98 mmol/L (98-107); Creatine Phosphokinase 56 U/L (39-308); Globulin 3.9 g/dL (1.3-4.6); Glucose 234 mg/dL (65-115); Osmolality Calculated 302 mOsm/kg (285-295); Potassium 4.6 mmol/L (3.5-5.1); Sodium 140 mmol/L (136-145); Total Bilirubin 0.3 mg/dL (0.15-1.2); Total Protein 7.6 g/dL (6.6-8.7)
== END 2022-10-20 19:19 | disposition home or self-care (01) ==
LOC: LAB 19:21
PROVIDERS: PCP Family Medicine; Visit Provider Family Medicine
DX: M86.9 Osteomyelitis, unspecified (principal); L03.116 Cellulitis of left lower limb; I50.9 Heart failure, unspecified; N28.9 Disorder of kidney and ureter, unspecified
CPT/HCPCS: 80053; 82550; 85025; 86140

== ENCOUNTER 2022-10-27 10:31 | Outpatient (CLI) | payer MEDICARE, OTHER, SELFPAY ==
[2022-10-27 10:58] LABS: Hematocrit 40.4 % (42.0-52.0); Mean Corpuscular HGB Conc 29.7 g/dL (30.0-36.0); Mean Corpuscular Hemoglobin 26.8 pg (28.0-34.0); Mean Corpuscular Volume 90.4 fl (80-94); Mean Platelet Volume 11.9 fL (7.4-10.4); Platelet Count 214 10^3/cmm (130-400); Red Blood Count 4.47 10^6/uL (4.1-5.3); Red Cell Distribution Width 14.8 % (12.1-15.1); White Blood Count 9.8 10^3/uL (4.0-10.0)
[2022-10-27 11:19] LABS: Alanine Aminotransferase 13 U/L (0-41); Albumin Level 3.8 g/dL (3.5-5.2); Alkaline Phosphatase 94 U/L (40-130); Anion Gap 16.7 (5-19); Aspartate Amino Transferase 10 U/L (0-40); Blood Urea Nitrogen 32 mg/dL (8-23); C Reactive Protein 36.4 mg/L (0.0-4.9); Calcium 8.9 mg/dL (8.5-10.5); Carbon Dioxide 26 mmol/L (22-29); Chloride 102 mmol/L (98-107); Creatine Phosphokinase 57 U/L (39-308); Globulin 3.3 g/dL (1.3-4.6); Glucose 205 mg/dL (65-115); Osmolality Calculated 303 mOsm/kg (285-295); Potassium 4.7 mmol/L (3.5-5.1); Sodium 140 mmol/L (136-145); Total Bilirubin 0.4 mg/dL (0.15-1.2); Total Protein 7.1 g/dL (6.6-8.7)
[2022-10-27 11:25] LABS: Absolute Eosinophils 0.2 10^3/cmm (0.0-0.7); Absolute Neutrophil 6.7 10^3/cmm (1.4-6.5); Absolute Segmented Neutrophil 6.5 10/cmm (1.6-7.1); Band Neutrophils Absolute 0.2 10^3/cmm (0.0-1.2); Eosinophils 3 %; Lymphocytes 24 %; Lymphocytes Absolute 2.4 10^3/cmm (1.2-3.4); Monocytes Absolute 0.5 10^3/cmm (0.1-0.6); Platelet Estimate Normal (Normal); Segmented Neutrophils 66 %; Total Cells Counted 100 (0-100)
== END 2022-10-27 10:32 | disposition home or self-care (01) ==
LOC: LAB 10:31
PROVIDERS: PCP Family Medicine; Visit Provider Internal Medicine Infectious Disease
DX: Z45.2 Encounter for adjustment and management of vascular access device (principal); M86.9 Osteomyelitis, unspecified
CPT/HCPCS: 80053; 82550; 85007; 85027; 86140

== ENCOUNTER 2022-11-03 15:15 | Outpatient (CLI) | payer MEDICARE, OTHER, SELFPAY ==
[2022-11-03 15:51] LABS: Hematocrit 38.7 % (42.0-52.0); Hemoglobin 11.9 g/dL (11.7-16.6); Mean Corpuscular HGB Conc 30.7 g/dL (30.0-36.0); Mean Corpuscular Hemoglobin 26.6 pg (28.0-34.0); Mean Corpuscular Volume 86.6 fl (80-94); Mean Platelet Volume 11.6 fL (7.4-10.4); Platelet Count 238 10^3/cmm (130-400); Red Blood Count 4.47 10^6/uL (4.1-5.3); Red Cell Distribution Width 14.6 % (12.1-15.1); White Blood Count 10.1 10^3/uL (4.0-10.0)
[2022-11-03 16:10] LABS: Creatine Phosphokinase 124 U/L (39-308)
[2022-11-03 16:11] LABS: Absolute Eosinophils 0.1 10^3/cmm (0.0-0.7); Absolute Segmented Neutrophil 8.5 10/cmm (1.6-7.1); Alanine Aminotransferase 15 U/L (0-41); Albumin Level 3.6 g/dL (3.5-5.2); Alkaline Phosphatase 103 U/L (40-130); Anion Gap 18.6 (5-19); Aspartate Amino Transferase 12 U/L (0-40); Band Neutrophils Absolute 0.1 10^3/cmm (0.0-1.2); Blood Urea Nitrogen 38 mg/dL (8-23); C Reactive Protein 79.7 mg/L (0.0-4.9); Calcium 9.2 mg/dL (8.5-10.5); Carbon Dioxide 24 mmol/L (22-29); Chloride 101 mmol/L (98-107); Eosinophils 1 %; Glucose 201 mg/dL (65-115); Lymphocytes 12 %; Lymphocytes Absolute 1.2 10^3/cmm (1.2-3.4); Monocytes Absolute 0.2 10^3/cmm (0.1-0.6); Osmolality Calculated 303 mOsm/kg (285-295); Potassium 4.6 mmol/L (3.5-5.1); Segmented Neutrophils 84 %; Smudge Cells 2+; Sodium 139 mmol/L (136-145); Total Bilirubin 0.5 mg/dL (0.15-1.2); Total Cells Counted 100 (0-100); Total Protein 7.6 g/dL (6.6-8.7)
[2022-11-03 16:12] LABS: Absolute Neutrophil 8.6 10^3/cmm (1.4-6.5); Giant Platelets Trace; Platelet Estimate Normal (Normal)
== END 2022-11-03 15:16 | disposition home or self-care (01) ==
LOC: LAB 15:16
PROVIDERS: PCP Family Medicine; Visit Provider Surgery
DX: E11.621 Type 2 diabetes mellitus with foot ulcer (principal); L97.509 Non-pressure chronic ulcer of other part of unspecified foot with unspecified severity; E11.22 Type 2 diabetes mellitus with diabetic chronic kidney disease; N18.31 Chronic kidney disease, stage 3a
CPT/HCPCS: 80053; 82550; 85007; 85027; 86140

== ENCOUNTER 2022-11-10 14:21 | Outpatient (CLI) | payer MEDICARE, OTHER, SELFPAY ==
[2022-11-10 14:39] LABS: Basophils # 0.1 10^3/uL (0.0-0.1); Basophils % 0.5 %; Eosinophils # 0.2 10^3/uL (0.0-0.8); Hematocrit 40.4 % (42.0-52.0); Hemoglobin 12.6 g/dL (11.7-16.6); Lymphocytes # 1.7 10^3/uL (0.8-4.8); Lymphocytes % 16.2 %; Mean Corpuscular HGB Conc 31.2 g/dL (30.0-36.0); Mean Corpuscular Hemoglobin 26.6 pg (28.0-34.0); Mean Corpuscular Volume 85.2 fl (80-94); Mean Platelet Volume 11.3 fL (7.4-10.4); Monocytes # 0.6 10^3/uL (0.2-0.9); Neutrophils # 7.73 10^3/uL (1.8-7.7); Neutrophils % 74.8 %; Nucleated Red Blood Cells % 0 %; Platelet Count 258 10^3/cmm (130-400); Red Blood Count 4.74 10^6/uL (4.1-5.3); Red Cell Distribution Width 14.7 % (12.1-15.1); White Blood Count 10.3 10^3/uL (4.0-10.0)
[2022-11-10 15:10] LABS: Alanine Aminotransferase 13 U/L (0-41); Albumin Level 3.9 g/dL (3.5-5.2); Alkaline Phosphatase 100 U/L (40-130); Anion Gap 15.4 (5-19); Aspartate Amino Transferase 11 U/L (0-40); Blood Urea Nitrogen 31 mg/dL (8-23); C Reactive Protein 46.6 mg/L (0.0-4.9); Calcium 9.3 mg/dL (8.5-10.5); Carbon Dioxide 26 mmol/L (22-29); Chloride 98 mmol/L (98-107); Creatine Phosphokinase 87 U/L (39-308); Globulin 3.7 g/dL (1.3-4.6); Glucose 132 mg/dL (65-115); Osmolality Calculated 288 mOsm/kg (285-295); Potassium 4.4 mmol/L (3.5-5.1); Sodium 135 mmol/L (136-145); Total Bilirubin 0.4 mg/dL (0.15-1.2); Total Protein 7.6 g/dL (6.6-8.7)
== END 2022-11-10 14:22 | disposition home or self-care (01) ==
LOC: LAB 14:22
PROVIDERS: PCP Family Medicine; Visit Provider Surgery
DX: E11.621 Type 2 diabetes mellitus with foot ulcer (principal); N18.31 Chronic kidney disease, stage 3a; E11.22 Type 2 diabetes mellitus with diabetic chronic kidney disease
CPT/HCPCS: 80053; 82550; 85025; 86140

== ENCOUNTER 2022-11-17 15:05 | Outpatient (CLI) | payer MEDICARE, OTHER, SELFPAY ==
[2022-11-17 17:10] LABS: Basophils # 0.1 10^3/uL (0.0-0.1); Basophils % 0.8 %; Eosinophils # 0.3 10^3/uL (0.0-0.8); Eosinophils % 2.9 %; Hematocrit 39.6 % (42.0-52.0); Hemoglobin 12.1 g/dL (11.7-16.6); Lymphocytes # 1.8 10^3/uL (0.8-4.8); Lymphocytes % 17.7 %; Mean Corpuscular HGB Conc 30.6 g/dL (30.0-36.0); Mean Corpuscular Hemoglobin 26.8 pg (28.0-34.0); Mean Corpuscular Volume 87.6 fl (80-94); Mean Platelet Volume 11.5 fL (7.4-10.4); Monocytes # 0.8 10^3/uL (0.2-0.9); Monocytes % 7.8 %; Neutrophils # 7.28 10^3/uL (1.8-7.7); Neutrophils % 70.4 %; Nucleated Red Blood Cells % 0 %; Platelet Count 228 10^3/cmm (130-400); Red Blood Count 4.52 10^6/uL (4.1-5.3); Red Cell Distribution Width 15.3 % (12.1-15.1); White Blood Count 10.3 10^3/uL (4.0-10.0)
[2022-11-17 17:45] LABS: Alanine Aminotransferase 14 U/L (0-41); Albumin Level 3.7 g/dL (3.5-5.2); Alkaline Phosphatase 105 U/L (40-130); Anion Gap 17.3 (5-19); Aspartate Amino Transferase 14 U/L (0-40); Blood Urea Nitrogen 34 mg/dL (8-23); C Reactive Protein 7.8 mg/L (0.0-4.9); Calcium 9.2 mg/dL (8.5-10.5); Carbon Dioxide 25 mmol/L (22-29); Chloride 102 mmol/L (98-107); Creatine Phosphokinase 107 U/L (39-308); Globulin 3.5 g/dL (1.3-4.6); Glucose 171 mg/dL (65-115); Osmolality Calculated 302 mOsm/kg (285-295); Potassium 4.3 mmol/L (3.5-5.1); Sodium 140 mmol/L (136-145); Total Bilirubin 0.3 mg/dL (0.15-1.2); Total Protein 7.2 g/dL (6.6-8.7)
== END 2022-11-17 15:06 | disposition home or self-care (01) ==
LOC: LAB 15:09
PROVIDERS: PCP Family Medicine; Visit Provider Surgery
DX: E11.621 Type 2 diabetes mellitus with foot ulcer (principal); E11.22 Type 2 diabetes mellitus with diabetic chronic kidney disease; N18.31 Chronic kidney disease, stage 3a
CPT/HCPCS: 80053; 82550; 85025; 86140

== ENCOUNTER 2022-11-24 10:52 | Outpatient (CLI) | payer MEDICARE, OTHER, SELFPAY ==
[2022-11-24 11:21] LABS: Basophils # 0.1 10^3/uL (0.0-0.1); Basophils % 0.5 %; Eosinophils # 0.4 10^3/uL (0.0-0.8); Hematocrit 41.1 % (42.0-52.0); Hemoglobin 12.7 g/dL (11.7-16.6); Lymphocytes # 1.6 10^3/uL (0.8-4.8); Lymphocytes % 16.2 %; Mean Corpuscular HGB Conc 30.9 g/dL (30.0-36.0); Mean Corpuscular Hemoglobin 26.6 pg (28.0-34.0); Mean Platelet Volume 11.4 fL (7.4-10.4); Monocytes # 0.6 10^3/uL (0.2-0.9); Monocytes % 6.1 %; Neutrophils # 7.04 10^3/uL (1.8-7.7); Neutrophils % 72.8 %; Nucleated Red Blood Cells % 0 %; Platelet Count 185 10^3/cmm (130-400); Red Blood Count 4.78 10^6/uL (4.1-5.3); Red Cell Distribution Width 15.8 % (12.1-15.1); White Blood Count 9.7 10^3/uL (4.0-10.0)
[2022-11-24 11:46] LABS: Alanine Aminotransferase 17 U/L (0-41); Albumin Level 3.7 g/dL (3.5-5.2); Alkaline Phosphatase 105 U/L (40-130); Anion Gap 17.4 (5-19); Aspartate Amino Transferase 15 U/L (0-40); Blood Urea Nitrogen 31 mg/dL (8-23); C Reactive Protein 27.1 mg/L (0.0-4.9); Calcium 9.3 mg/dL (8.5-10.5); Carbon Dioxide 25 mmol/L (22-29); Chloride 98 mmol/L (98-107); Creatine Phosphokinase 95 U/L (39-308); Globulin 3.5 g/dL (1.3-4.6); Glucose 255 mg/dL (65-115); Osmolality Calculated 297 mOsm/kg (285-295); Potassium 4.4 mmol/L (3.5-5.1); Sodium 136 mmol/L (136-145); Total Bilirubin 0.5 mg/dL (0.15-1.2); Total Protein 7.2 g/dL (6.6-8.7)
== END 2022-11-24 10:53 | disposition home or self-care (01) ==
LOC: LAB 12-01 10:52
PROVIDERS: Internal Medicine Infectious Disease; PCP Family Medicine; Visit Provider Surgery
DX: E11.621 Type 2 diabetes mellitus with foot ulcer (principal); N18.31 Chronic kidney disease, stage 3a
CPT/HCPCS: 80053; 82550; 85025; 86140

== ENCOUNTER 2022-12-15 13:56 | Outpatient (CLI) | payer MEDICARE, OTHER, SELFPAY ==
[2022-12-01 16:13] LABS: Basophils % 0.2 %; Eosinophils # 0.2 10^3/uL (0.0-0.8); Eosinophils % 1.9 %; Hematocrit 37.9 % (42.0-52.0); Hemoglobin 11.8 g/dL (11.7-16.6); Lymphocytes # 1.2 10^3/uL (0.8-4.8); Lymphocytes % 9.7 %; Mean Corpuscular HGB Conc 31.1 g/dL (30.0-36.0); Mean Corpuscular Hemoglobin 26.5 pg (28.0-34.0); Mean Corpuscular Volume 85.2 fl (80-94); Mean Platelet Volume 11.7 fL (7.4-10.4); Monocytes % 7.8 %; Neutrophils # 9.72 10^3/uL (1.8-7.7); Neutrophils % 80.1 %; Nucleated Red Blood Cells % 0 %; Platelet Count 196 10^3/cmm (130-400); Red Blood Count 4.45 10^6/uL (4.1-5.3); Red Cell Distribution Width 16.1 % (12.1-15.1); White Blood Count 12.2 10^3/uL (4.0-10.0)
[2022-12-01 16:34] LABS: Alanine Aminotransferase 19 U/L (0-41); Albumin Level 3.6 g/dL (3.5-5.2); Alkaline Phosphatase 110 U/L (40-130); Anion Gap 16.1 (5-19); Aspartate Amino Transferase 14 U/L (0-40); Blood Urea Nitrogen 30 mg/dL (8-23); C Reactive Protein 121.5 mg/L (0.0-4.9); Calcium 9.5 mg/dL (8.5-10.5); Carbon Dioxide 28 mmol/L (22-29); Chloride 97 mmol/L (98-107); Creatine Phosphokinase 78 U/L (39-308); Globulin 3.9 g/dL (1.3-4.6); Glucose 249 mg/dL (65-115); Osmolality Calculated 297 mOsm/kg (285-295); Potassium 5.1 mmol/L (3.5-5.1); Sodium 136 mmol/L (136-145); Total Bilirubin 0.4 mg/dL (0.15-1.2); Total Protein 7.5 g/dL (6.6-8.7)
[2022-12-15 15:10] LABS: Basophils # 0.1 10^3/uL (0.0-0.1); Basophils % 0.6 %; Eosinophils # 0.4 10^3/uL (0.0-0.8); Eosinophils % 3.4 %; Hematocrit 41.2 % (42.0-52.0); Hemoglobin 12.9 g/dL (11.7-16.6); Lymphocytes # 1.7 10^3/uL (0.8-4.8); Mean Corpuscular HGB Conc 31.3 g/dL (30.0-36.0); Mean Corpuscular Hemoglobin 26.6 pg (28.0-34.0); Mean Corpuscular Volume 84.9 fl (80-94); Mean Platelet Volume 10.4 fL (7.4-10.4); Monocytes # 0.6 10^3/uL (0.2-0.9); Monocytes % 5.4 %; Neutrophils # 7.72 10^3/uL (1.8-7.7); Neutrophils % 73.9 %; Nucleated Red Blood Cells % 0 %; Platelet Count 312 10^3/cmm (130-400); Red Blood Count 4.85 10^6/uL (4.1-5.3); Red Cell Distribution Width 16.1 % (12.1-15.1); White Blood Count 10.4 10^3/uL (4.0-10.0)
[2022-12-15 15:38] LABS: Alanine Aminotransferase 16 U/L (0-41); Albumin Level 3.7 g/dL (3.5-5.2); Alkaline Phosphatase 109 U/L (40-130); Anion Gap 17.7 (5-19); Aspartate Amino Transferase 13 U/L (0-40); Blood Urea Nitrogen 31 mg/dL (8-23); Calcium 9.5 mg/dL (8.5-10.5); Carbon Dioxide 25 mmol/L (22-29); Chloride 99 mmol/L (98-107); Creatine Phosphokinase 80 U/L (39-308); Globulin 3.6 g/dL (1.3-4.6); Glucose 199 mg/dL (65-115); Osmolality Calculated 296 mOsm/kg (285-295); Potassium 4.7 mmol/L (3.5-5.1); Sodium 137 mmol/L (136-145); Total Bilirubin 0.3 mg/dL (0.15-1.2); Total Protein 7.3 g/dL (6.6-8.7)
== END 2022-12-15 13:57 | disposition home or self-care (01) ==
LOC: LAB 14:33
PROVIDERS: PCP Family Medicine; Visit Provider Internal Medicine Infectious Disease
DX: E11.621 Type 2 diabetes mellitus with foot ulcer (principal); N18.31 Chronic kidney disease, stage 3a; M86.9 Osteomyelitis, unspecified; Z45.2 Encounter for adjustment and management of vascular access device
CPT/HCPCS: 80053; 82550; 85025; 86140

== ENCOUNTER 2022-12-22 14:10 | Outpatient (CLI) | payer MEDICARE, OTHER, SELFPAY ==
[2022-12-08 12:56] LABS: Basophils # 0.1 10^3/uL (0.0-0.1); Basophils % 0.5 %; Eosinophils # 0.5 10^3/uL (0.0-0.8); Eosinophils % 3.7 %; Hematocrit 39.1 % (42.0-52.0); Hemoglobin 12.3 g/dL (11.7-16.6); Lymphocytes # 1.4 10^3/uL (0.8-4.8); Lymphocytes % 11.9 %; Mean Corpuscular HGB Conc 31.5 g/dL (30.0-36.0); Mean Corpuscular Hemoglobin 26.6 pg (28.0-34.0); Mean Corpuscular Volume 84.6 fl (80-94); Mean Platelet Volume 10.4 fL (7.4-10.4); Monocytes # 0.7 10^3/uL (0.2-0.9); Monocytes % 5.8 %; Neutrophils % 77.4 %; Nucleated Red Blood Cells % 0 %; Platelet Count 277 10^3/cmm (130-400); Red Blood Count 4.62 10^6/uL (4.1-5.3); Red Cell Distribution Width 15.9 % (12.1-15.1); White Blood Count 12.1 10^3/uL (4.0-10.0)
[2022-12-08 13:22] LABS: Alanine Aminotransferase 22 U/L (0-41); Albumin Level 3.6 g/dL (3.5-5.2); Alkaline Phosphatase 127 U/L (40-130); Anion Gap 17.8 (5-19); Aspartate Amino Transferase 13 U/L (0-40); Blood Urea Nitrogen 24 mg/dL (8-23); C Reactive Protein 48.8 mg/L (0.0-4.9); Calcium 9.4 mg/dL (8.5-10.5); Carbon Dioxide 25 mmol/L (22-29); Chloride 99 mmol/L (98-107); Creatine Phosphokinase 50 U/L (39-308); Globulin 3.7 g/dL (1.3-4.6); Glucose 247 mg/dL (65-115); Osmolality Calculated 296 mOsm/kg (285-295); Potassium 4.8 mmol/L (3.5-5.1); Sodium 137 mmol/L (136-145); Total Bilirubin 0.3 mg/dL (0.15-1.2); Total Protein 7.3 g/dL (6.6-8.7)
[2022-12-22 15:20] LABS: Basophils # 0.1 10^3/uL (0.0-0.1); Basophils % 0.4 %; Eosinophils # 0.4 10^3/uL (0.0-0.8); Eosinophils % 2.7 %; Hematocrit 41.6 % (42.0-52.0); Hemoglobin 12.8 g/dL (11.7-16.6); Lymphocytes # 1.5 10^3/uL (0.8-4.8); Mean Corpuscular HGB Conc 30.8 g/dL (30.0-36.0); Mean Corpuscular Hemoglobin 26.1 pg (28.0-34.0); Mean Corpuscular Volume 84.9 fl (80-94); Mean Platelet Volume 11.9 fL (7.4-10.4); Monocytes # 0.9 10^3/uL (0.2-0.9); Monocytes % 6.6 %; Neutrophils # 10.98 10^3/uL (1.8-7.7); Nucleated Red Blood Cells % 0 %; Platelet Count 239 10^3/cmm (130-400); Red Cell Distribution Width 16.9 % (12.1-15.1); White Blood Count 13.9 10^3/uL (4.0-10.0)
[2022-12-22 16:05] LABS: Alanine Aminotransferase 17 U/L (0-41); Albumin Level 4.1 g/dL (3.5-5.2); Alkaline Phosphatase 108 U/L (40-130); Anion Gap 18.2 (5-19); Aspartate Amino Transferase 14 U/L (0-40); Blood Urea Nitrogen 31 mg/dL (8-23); C Reactive Protein 20.9 mg/L (0.0-4.9); Calcium 9.3 mg/dL (8.5-10.5); Carbon Dioxide 24 mmol/L (22-29); Chloride 95 mmol/L (98-107); Creatine Phosphokinase 91 U/L (39-308); Globulin 3.4 g/dL (1.3-4.6); Glucose 201 mg/dL (65-115); Osmolality Calculated 286 mOsm/kg (285-295); Potassium 5.2 mmol/L (3.5-5.1); Sodium 132 mmol/L (136-145); Total Bilirubin 0.4 mg/dL (0.15-1.2); Total Protein 7.5 g/dL (6.6-8.7)
== END 2022-12-22 14:11 | disposition home or self-care (01) ==
LOC: LAB 14:11
PROVIDERS: PCP Family Medicine; Visit Provider Surgery
DX: E11.621 Type 2 diabetes mellitus with foot ulcer (principal); L97.909 Non-pressure chronic ulcer of unspecified part of unspecified lower leg with unspecified severity; E11.22 Type 2 diabetes mellitus with diabetic chronic kidney disease; N18.30 Chronic kidney disease, stage 3 unspecified
CPT/HCPCS: 80053; 82550; 85025; 86140

== ENCOUNTER 2022-12-29 11:15 | Outpatient (CLI) | payer MEDICARE, OTHER, SELFPAY ==
[2022-12-29 11:42] LABS: Basophils # 0.1 10^3/uL (0.0-0.1); Basophils % 0.6 %; Eosinophils # 0.6 10^3/uL (0.0-0.8); Eosinophils % 5.6 %; Hematocrit 39.1 % (42.0-52.0); Hemoglobin 12.3 g/dL (11.7-16.6); Lymphocytes # 2.1 10^3/uL (0.8-4.8); Lymphocytes % 19.8 %; Mean Corpuscular HGB Conc 31.5 g/dL (30.0-36.0); Mean Corpuscular Hemoglobin 26.2 pg (28.0-34.0); Mean Corpuscular Volume 83.4 fl (80-94); Mean Platelet Volume 11.1 fL (7.4-10.4); Monocytes % 9.7 %; Neutrophils # 6.67 10^3/uL (1.8-7.7); Neutrophils % 63.9 %; Nucleated Red Blood Cells % 0 %; Platelet Count 175 10^3/cmm (130-400); Red Blood Count 4.69 10^6/uL (4.1-5.3); Red Cell Distribution Width 17.1 % (12.1-15.1); White Blood Count 10.4 10^3/uL (4.0-10.0)
[2022-12-29 12:04] LABS: Alanine Aminotransferase 20 U/L (0-41); Albumin Level 3.6 g/dL (3.5-5.2); Alkaline Phosphatase 97 U/L (40-130); Anion Gap 17.3 (5-19); Aspartate Amino Transferase 15 U/L (0-40); Blood Urea Nitrogen 23 mg/dL (8-23); C Reactive Protein 24.3 mg/L (0.0-4.9); Calcium 8.8 mg/dL (8.5-10.5); Carbon Dioxide 26 mmol/L (22-29); Chloride 101 mmol/L (98-107); Creatine Phosphokinase 114 U/L (39-308); Globulin 2.9 g/dL (1.3-4.6); Glucose 266 mg/dL (65-115); Osmolality Calculated 303 mOsm/kg (285-295); Potassium 4.3 mmol/L (3.5-5.1); Sodium 140 mmol/L (136-145); Total Bilirubin 0.4 mg/dL (0.15-1.2); Total Protein 6.5 g/dL (6.6-8.7)
== END 2022-12-29 11:16 | disposition home or self-care (01) ==
LOC: LAB 11:16
PROVIDERS: PCP Family Medicine; Visit Provider Surgery
DX: E11.621 Type 2 diabetes mellitus with foot ulcer (principal); N18.31 Chronic kidney disease, stage 3a
CPT/HCPCS: 80053; 82550; 85025; 86140

== ENCOUNTER 2023-01-05 11:28 | Outpatient (CLI) | payer MEDICARE, OTHER, SELFPAY ==
[2023-01-05 11:50] LABS: Basophils # 0.1 10^3/uL (0.0-0.1); Basophils % 0.7 %; Eosinophils # 0.7 10^3/uL (0.0-0.8); Eosinophils % 6.8 %; Hematocrit 39.3 % (42.0-52.0); Hemoglobin 12.3 g/dL (11.7-16.6); Lymphocytes # 2.9 10^3/uL (0.8-4.8); Lymphocytes % 30.6 %; Mean Corpuscular HGB Conc 31.3 g/dL (30.0-36.0); Mean Corpuscular Hemoglobin 26.1 pg (28.0-34.0); Mean Corpuscular Volume 83.4 fl (80-94); Mean Platelet Volume 10.7 fL (7.4-10.4); Monocytes % 10.2 %; Neutrophils # 4.85 10^3/uL (1.8-7.7); Neutrophils % 51.2 %; Nucleated Red Blood Cells % 0 %; Platelet Count 185 10^3/cmm (130-400); Red Blood Count 4.71 10^6/uL (4.1-5.3); Red Cell Distribution Width 17.3 % (12.1-15.1); White Blood Count 9.5 10^3/uL (4.0-10.0)
[2023-01-05 12:49] LABS: Alanine Aminotransferase 19 U/L (0-41); Albumin Level 3.6 g/dL (3.5-5.2); Alkaline Phosphatase 94 U/L (40-130); Anion Gap 17.4 (5-19); Aspartate Amino Transferase 13 U/L (0-40); Blood Urea Nitrogen 33 mg/dL (8-23); C Reactive Protein 13.3 mg/L (0.0-4.9); Calcium 9.1 mg/dL (8.5-10.5); Carbon Dioxide 23 mmol/L (22-29); Chloride 102 mmol/L (98-107); Creatine Phosphokinase 139 U/L (39-308); Globulin 3.1 g/dL (1.3-4.6); Glucose 220 mg/dL (65-115); Osmolality Calculated 300 mOsm/kg (285-295); Potassium 4.4 mmol/L (3.5-5.1); Sodium 138 mmol/L (136-145); Total Bilirubin 0.5 mg/dL (0.15-1.2); Total Protein 6.7 g/dL (6.6-8.7)
== END 2023-01-05 11:29 | disposition home or self-care (01) ==
LOC: LAB 11:29
PROVIDERS: PCP Family Medicine; Visit Provider Surgery
DX: E11.621 Type 2 diabetes mellitus with foot ulcer (principal); N18.31 Chronic kidney disease, stage 3a; Z79.899 Other long term (current) drug therapy
CPT/HCPCS: 80053; 82550; 85025; 86140

== ENCOUNTER 2023-01-12 13:05 | Outpatient (CLI) | payer MEDICARE, OTHER, SELFPAY ==
[2023-01-12 13:37] LABS: Basophils # 0.1 10^3/uL (0.0-0.1); Basophils % 0.5 %; Eosinophils # 0.6 10^3/uL (0.0-0.8); Eosinophils % 6.4 %; Hemoglobin 12.2 g/dL (11.7-16.6); Lymphocytes # 1.7 10^3/uL (0.8-4.8); Lymphocytes % 17.1 %; Mean Corpuscular HGB Conc 31.3 g/dL (30.0-36.0); Mean Corpuscular Hemoglobin 26.5 pg (28.0-34.0); Mean Corpuscular Volume 84.8 fl (80-94); Mean Platelet Volume 10.8 fL (7.4-10.4); Monocytes # 0.8 10^3/uL (0.2-0.9); Monocytes % 7.6 %; Neutrophils # 6.79 10^3/uL (1.8-7.7); Nucleated Red Blood Cells % 0 %; Platelet Count 187 10^3/cmm (130-400); Red Cell Distribution Width 17.8 % (12.1-15.1)
[2023-01-12 14:06] LABS: Alanine Aminotransferase 20 U/L (0-41); Albumin Level 3.7 g/dL (3.5-5.2); Alkaline Phosphatase 95 U/L (40-130); Anion Gap 15.4 (5-19); Aspartate Amino Transferase 13 U/L (0-40); Blood Urea Nitrogen 31 mg/dL (8-23); Carbon Dioxide 27 mmol/L (22-29); Chloride 102 mmol/L (98-107); Creatine Phosphokinase 124 U/L (39-308); Globulin 2.9 g/dL (1.3-4.6); Glucose 270 mg/dL (65-115); Osmolality Calculated 306 mOsm/kg (285-295); Potassium 4.4 mmol/L (3.5-5.1); Sodium 140 mmol/L (136-145); Total Bilirubin 0.4 mg/dL (0.15-1.2); Total Protein 6.6 g/dL (6.6-8.7)
== END 2023-01-12 13:06 | disposition home or self-care (01) ==
LOC: LAB 13:05
PROVIDERS: PCP Family Medicine; Visit Provider Surgery
DX: E11.621 Type 2 diabetes mellitus with foot ulcer (principal); N18.31 Chronic kidney disease, stage 3a
CPT/HCPCS: 80053; 82550; 85025; 86140

== ENCOUNTER 2023-01-19 10:54 | Outpatient (CLI) | payer MEDICARE, OTHER, SELFPAY ==
[2023-01-19 11:11] LABS: Basophils # 0.1 10^3/uL (0.0-0.1); Basophils % 0.6 %; Eosinophils # 0.6 10^3/uL (0.0-0.8); Eosinophils % 5.8 %; Hematocrit 41.5 % (42.0-52.0); Hemoglobin 13.1 g/dL (11.7-16.6); Lymphocytes # 2.1 10^3/uL (0.8-4.8); Lymphocytes % 20.7 %; Mean Corpuscular HGB Conc 31.6 g/dL (30.0-36.0); Mean Corpuscular Hemoglobin 26.9 pg (28.0-34.0); Mean Corpuscular Volume 85.2 fl (80-94); Mean Platelet Volume 11.5 fL (7.4-10.4); Neutrophils # 6.31 10^3/uL (1.8-7.7); Neutrophils % 62.2 %; Nucleated Red Blood Cells % 0 %; Platelet Count 205 10^3/cmm (130-400); Red Blood Count 4.87 10^6/uL (4.1-5.3); Red Cell Distribution Width 17.8 % (12.1-15.1); White Blood Count 10.2 10^3/uL (4.0-10.0)
[2023-01-19 11:28] LABS: Alanine Aminotransferase 18 U/L (0-41); Albumin Level 3.9 g/dL (3.5-5.2); Alkaline Phosphatase 105 U/L (40-130); Anion Gap 14.3 (5-19); Aspartate Amino Transferase 10 U/L (0-40); Blood Urea Nitrogen 29 mg/dL (8-23); Calcium 8.8 mg/dL (8.5-10.5); Carbon Dioxide 26 mmol/L (22-29); Chloride 103 mmol/L (98-107); Creatine Phosphokinase 83 U/L (39-308); Globulin 2.6 g/dL (1.3-4.6); Glucose 191 mg/dL (65-115); Osmolality Calculated 299 mOsm/kg (285-295); Potassium 4.3 mmol/L (3.5-5.1); Sodium 139 mmol/L (136-145); Total Bilirubin 0.4 mg/dL (0.15-1.2); Total Protein 6.5 g/dL (6.6-8.7)
== END 2023-01-19 10:55 | disposition home or self-care (01) ==
LOC: LAB 10:56
PROVIDERS: PCP Family Medicine; Visit Provider Surgery
DX: E11.621 Type 2 diabetes mellitus with foot ulcer (principal); L97.509 Non-pressure chronic ulcer of other part of unspecified foot with unspecified severity; N18.31 Chronic kidney disease, stage 3a
CPT/HCPCS: 80053; 82550; 85025; 86140

== ENCOUNTER 2023-01-26 08:54 | Outpatient (CLI) | payer MEDICARE, OTHER, SELFPAY | END 2023-01-26 08:55 | disposition home or self-care (01) | LOC: LAB 04-13 08:56 | PROVIDERS: PCP Family Medicine; Visit Provider Surgery | DX: E11.621 Type 2 diabetes mellitus with foot ulcer (principal); L97.509 Non-pressure chronic ulcer of other part of unspecified foot with unspecified severity; E11.22 Type 2 diabetes mellitus with diabetic chronic kidney disease; N18.31 Chronic kidney disease, stage 3a | CPT/HCPCS: 80053; 82550; 85007; 85027; 86140 ==

== ENCOUNTER 2023-01-27 11:03 | Outpatient (CLI) | payer MEDICARE, OTHER, SELFPAY ==
[2023-01-26 12:05] LABS: Mean Corpuscular HGB Conc 31.6 g/dL (30-55); Mean Corpuscular Hemoglobin 26.5 pg (27-33); Mean Corpuscular Volume 84.1 fl (82-101); Mean Platelet Volume 10.9 fL (7.4-10.4); Platelet Count 165 10^3/cmm (157-399); Red Blood Count 4.52 10^6/uL (3.85-5.65); Red Cell Distribution Width 17.8 % (12.1-15.1); White Blood Count 9.17 10^3/uL (3.29-11.43)
[2023-01-26 12:32] LABS: Alanine Aminotransferase 22 U/L (0-41); Albumin Level 3.8 g/dL (3.5-5.2); Alkaline Phosphatase 99 U/L (40-130); Anion Gap 14.3 (5-19); Aspartate Amino Transferase 15 U/L (0-40); Blood Urea Nitrogen 35 mg/dL (8-23); C Reactive Protein 45.5 mg/L (0.0-4.9); Calcium 9.1 mg/dL (8.5-10.5); Carbon Dioxide 28 mmol/L (22-29); Chloride 100 mmol/L (98-107); Creatine Phosphokinase 142 U/L (39-308); Globulin 2.8 g/dL (1.3-4.6); Glucose 252 mg/dL (65-115); Osmolality Calculated 303 mOsm/kg (285-295); Potassium 4.3 mmol/L (3.5-5.1); Sodium 138 mmol/L (136-145); Total Bilirubin 0.7 mg/dL (0.15-1.2); Total Protein 6.6 g/dL (6.6-8.7)
[2023-01-26 12:44] LABS: Absolute Eosinophils 0.6 10^3/cmm (0.0-0.7); Absolute Segmented Neutrophil 6.3 10/cmm (1.6-7.1); Band Neutrophils Absolute 0.2 10^3/cmm (0.0-1.2); Eosinophils 6 %; Lymphocytes 20 %; Monocytes Absolute 0.3 10^3/cmm (0.1-0.6); Segmented Neutrophils 69 %; Total Cells Counted 100 (0-100)
[2023-01-26 12:45] LABS: Absolute Neutrophil 6.5 10^3/cmm (1.4-6.5); Lymphocytes Absolute 1.8 10^3/cmm (1.2-3.4); Platelet Estimate Normal (Normal)
[2023-01-27 10:27] LABS: NT Pro B Type Natriuretic Pept 189 pg/mL (0-450)
== END 2023-01-27 11:04 | disposition home or self-care (01) ==
PROVIDERS: PCP Family Medicine; Visit Provider Surgery
DX: Z01.89 Encounter for other specified special examinations (principal)
CPT/HCPCS: 80053; 82550; 83880; 85007; 85027; 86140

== ENCOUNTER 2023-02-16 09:00 | Outpatient (CLI) | payer MEDICARE, OTHER, SELFPAY ==
[2023-02-16 11:44] LABS: Hematocrit 38.8 % (37-53); Mean Corpuscular HGB Conc 32.2 g/dL (30-55); Mean Corpuscular Hemoglobin 27.6 pg (27-33); Mean Corpuscular Volume 85.7 fl (82-101); Platelet Count 183 10^3/cmm (157-399); Red Blood Count 4.53 10^6/uL (3.85-5.65); Red Cell Distribution Width 17.7 % (12.1-15.1); White Blood Count 8.78 10^3/uL (3.29-11.43)
[2023-02-16 11:57] LABS: Absolute Eosinophils 0.4 10^3/cmm (0.0-0.7); Absolute Segmented Neutrophil 6.5 10/cmm (1.6-7.1); Band Neutrophils Absolute 0.2 10^3/cmm (0.0-1.2); Eosinophils 4 %; Lymphocytes 17 %; Monocytes Absolute 0.3 10^3/cmm (0.1-0.6); Segmented Neutrophils 74 %; Total Cells Counted 100 (0-100)
[2023-02-16 11:58] LABS: Absolute Neutrophil 6.7 10^3/cmm (1.4-6.5); Anisocytosis 1+; Giant Platelets 1+; Lymphocytes Absolute 1.5 10^3/cmm (1.2-3.4); Platelet Estimate Normal (Normal); Poikilocytosis Trace; Smudge Cells 1+
[2023-02-16 12:11] LABS: Alanine Aminotransferase 23 U/L (0-41); Albumin Level 3.7 g/dL (3.5-5.2); Alkaline Phosphatase 107 U/L (40-130); Aspartate Amino Transferase 17 U/L (0-40); Blood Urea Nitrogen 34 mg/dL (8-23); C Reactive Protein 9.4 mg/L (0.0-4.9); Carbon Dioxide 25 mmol/L (22-29); Chloride 100 mmol/L (98-107); Globulin 2.9 g/dL (1.3-4.6); Glucose 290 mg/dL (65-115); Osmolality Calculated 300 mOsm/kg (285-295); Sodium 136 mmol/L (136-145); Total Bilirubin 0.4 mg/dL (0.15-1.2); Total Protein 6.6 g/dL (6.6-8.7)
[2023-02-16 12:23] LABS: Anion Gap 15.1 (5-19); Potassium 4.1 mmol/L (3.5-5.1)
== END 2023-02-16 09:15 | disposition home or self-care (01) ==
LOC: LAB 06-02 09:45
PROVIDERS: PCP Family Medicine; Visit Provider Internal Medicine Infectious Disease
DX: I50.32 Chronic diastolic (congestive) heart failure (principal)
CPT/HCPCS: 80053; 85007; 85027; 86140

== ENCOUNTER 2023-03-02 12:17 | Outpatient (CLI) | payer MEDICARE, OTHER, SELFPAY ==
[2023-03-02 12:30] LABS: Basophils # 0.1 10^3/uL (0.0-0.1); Basophils % 0.5 %; Eosinophils # 0.4 10^3/uL (0.0-0.8); Eosinophils % 3.9 %; Hematocrit 38.7 % (37-53); Lymphocytes # 1.7 10^3/uL (0.8-4.8); Lymphocytes % 15.2 %; Mean Corpuscular HGB Conc 32.6 g/dL (30-55); Mean Corpuscular Hemoglobin 28.3 pg (27-33); Mean Platelet Volume 10.2 fL (7.4-10.4); Monocytes # 1.2 10^3/uL (0.2-0.9); Monocytes % 11.2 %; Neutrophils # 7.39 10^3/uL (1.8-7.7); Neutrophils % 68.3 %; Nucleated Red Blood Cells % 0 %; Platelet Count 148 10^3/cmm (157-399); Red Blood Count 4.45 10^6/uL (3.85-5.65); Red Cell Distribution Width 17.4 % (12.1-15.1); White Blood Count 10.82 10^3/uL (3.29-11.43)
[2023-03-02 13:02] LABS: Alanine Aminotransferase 24 U/L (0-41); Albumin Level 3.7 g/dL (3.5-5.2); Alkaline Phosphatase 106 U/L (40-130); Anion Gap 17.5 (5-19); Aspartate Amino Transferase 13 U/L (0-40); Blood Urea Nitrogen 36 mg/dL (8-23); C Reactive Protein 26.4 mg/L (0.0-4.9); Calcium 9.3 mg/dL (8.5-10.5); Carbon Dioxide 24 mmol/L (22-29); Chloride 98 mmol/L (98-107); Globulin 2.6 g/dL (1.3-4.6); Glucose 323 mg/dL (65-115); NT Pro B Type Natriuretic Pept 193 pg/mL (0-450); Osmolality Calculated 301 mOsm/kg (285-295); Potassium 4.5 mmol/L (3.5-5.1); Sodium 135 mmol/L (136-145); Total Bilirubin 0.4 mg/dL (0.15-1.2); Total Protein 6.3 g/dL (6.6-8.7)
== END 2023-03-02 12:18 | disposition home or self-care (01) ==
LOC: LAB 12:18
PROVIDERS: PCP Family Medicine; Visit Provider Internal Medicine Infectious Disease
DX: I50.32 Chronic diastolic (congestive) heart failure (principal); I27.20 Pulmonary hypertension, unspecified
CPT/HCPCS: 80053; 83880; 85025; 86140

== ENCOUNTER → 2023-11-24 13:17 | Outpatient (BNVA) | payer MEDICARE, OTHER, SELFPAY | PROVIDERS: PCP Family Medicine; Visit Provider Family Medicine | DX: M25.522 Pain in left elbow (principal); M79.89 Other specified soft tissue disorders; E11.9 Type 2 diabetes mellitus without complications; Z13.6 Encounter for screening for cardiovascular disorders | CPT/HCPCS: 73080; 80061; 83036 ==

== ENCOUNTER → 2024-11-01 12:16 | Outpatient (BNVA) | payer MEDICARE, OTHER, SELFPAY | PROVIDERS: PCP Family Medicine; Visit Provider Family Medicine | DX: E03.9 Hypothyroidism, unspecified (principal); I50.9 Heart failure, unspecified; E11.9 Type 2 diabetes mellitus without complications; N28.9 Disorder of kidney and ureter, unspecified; J44.9 Chronic obstructive pulmonary disease, unspecified; R60.9 Edema, unspecified; G89.29 Other chronic pain | CPT/HCPCS: 80053; 80061; 82607; 83036; 84443; 85025 ==

== ENCOUNTER → 2024-12-14 11:50 | Outpatient (BNVA) | payer MEDICARE, OTHER, SELFPAY | PROVIDERS: PCP Family Medicine; Visit Provider Family Medicine | DX: N28.9 Disorder of kidney and ureter, unspecified (principal) | CPT/HCPCS: 80048 ==

== ENCOUNTER → 2025-01-13 11:55 | Outpatient (BNVA) | payer MEDICARE, OTHER, SELFPAY | PROVIDERS: PCP Family Medicine; Visit Provider Family Medicine | DX: I50.9 Heart failure, unspecified (principal) | CPT/HCPCS: 83880 ==

== ENCOUNTER → 2025-02-24 12:05 | Outpatient (BNVA) | payer MEDICARE, OTHER, SELFPAY | PROVIDERS: PCP Family Medicine; Visit Provider Family Medicine | DX: I48.91 Unspecified atrial fibrillation (principal); I50.9 Heart failure, unspecified | CPT/HCPCS: 80048; 83880 ==

== ENCOUNTER 2025-03-10 15:41 | Emergency (ER) | payer MEDICARE, OTHER, SELFPAY ==
[2025-03-10 15:45] VITALS: PULSE 68; RESP 18; TEMP 36.8; O2SAT 93
--- NOTE | 2025-03-10 16:38 | USR_ITS ---
PROCEDURE INFORMATION: Exam: US Duplex Right Lower Extremity Veins, Limited Exam date and time: 03/10/2025 6:03 PM Age: 79 years old Clinical indication: Pain; Foot; Right; Additional info: Right foot/knee pain/ swelling TECHNIQUE: Imaging protocol: Real-time duplex ultrasound of the right extremity with 2-D gannon scale, color Doppler flow and spectral waveform analysis including responses to compression and other maneuvers (when performed) with image documentation. Limited exam was focused on the right lower extremity veins. COMPARISON: MR foot RT wo/w con [id number] 05/04/2019 7:36 AM FINDINGS: Right deep veins: Unremarkable. The common femoral, femoral, proximal profunda femoral and popliteal veins are patent without thrombus. Normal Doppler waveforms. Normal compressibility and/or augmentation response. Superficial veins: Greater saphenous vein at the saphenofemoral junction is patent without thrombus. Soft tissues: Right Holloway's cyst measures 5.2 x 4.1 x 3.1 cm. US/[place] [id number] IMPRESSION: No evidence of deep vein thrombosis. Right Holloway's cyst.
--- NOTE | 2025-03-10 18:58 | XRR_ITS ---
PROCEDURE INFORMATION: Exam: XR Right Knee Exam date and time: 03/10/2025 7:22 PM Age: 79 years old Clinical indication: Pain; Knee; Right TECHNIQUE: Imaging protocol: Radiologic exam of the right knee. Views: 3 views. COMPARISON: [place] [id number] 03/10/2025 6:03 PM FINDINGS: Bones/joints: No acute fracture or subluxation. Moderate suprapatellar joint effusion. Soft tissues: Normal. Vasculature: Vascular calcifications. XR/XR knee RT 3V* [id number] IMPRESSION: 1. No acute fracture or subluxation. 2. Moderate suprapatellar joint effusion.
--- NOTE | 2025-03-10 18:58 | XRR_ITS ---
PROCEDURE INFORMATION: Exam: XR Right Ankle Exam date and time: 03/10/2025 7:22 PM Age: 79 years old Clinical indication: Pain; Ankle; Right; Additional info: Fall TECHNIQUE: Imaging protocol: Radiologic exam of the right ankle. Views: 3 or more views. COMPARISON: MR foot RT wo/w con [id number] 05/04/2019 7:36 AM FINDINGS: Bones/joints: No acute fracture or subluxation. Mortise intact. Soft tissues: Moderate soft tissue swelling. XR/XR ankle RT min 3V* [id number] IMPRESSION: 1. No acute fracture or subluxation. 2. Moderate soft tissue swelling.
--- NOTE | 2025-03-10 18:58 | XRR_ITS ---
PROCEDURE INFORMATION: Exam: XR Right Foot Exam date and time: 03/10/2025 7:22 PM Age: 79 years old Clinical indication: Pain; Foot; Right TECHNIQUE: Imaging protocol: Radiologic exam of the right foot. Views: 3 or more views. COMPARISON: MR foot RT wo/w con [id number] 05/04/2019 7:36 AM FINDINGS: Bones/joints: No acute fracture or subluxation. Soft tissues: Moderate soft tissue swelling. XR/XR foot RT min 3V* [id number] IMPRESSION: 1. No acute fracture or subluxation. 2. Moderate soft tissue swelling.
[2025-03-10] MEDS: HYDROcodone-acetaminophen 7.5-325 mg Tablet 1 TAB PO (19:21)
[2025-03-10 19:22] VITALS: BP 168/85; PULSE 93; O2SAT 91
--- NOTE | 2025-03-10 20:09 | ED_ITS ---
Documented by User: BERENICE Guerrero 03/10/25 20:12 HPI - Extremity Problem General: Chief complaint: Extremity Injury, Lower Stated complaint: R Leg Foot Swelling Painful Time Seen by Provider: 03/10/25 18:48 Source: patient Mode of arrival: ambulatory Limitations: no limitations History of Present Illness: Patient is an 79-year-old male who presents the emergency department after a fall 2 days ago. States he has had worsening right lower extremity pain, he is having difficulty distinguishing where the pain is secondary to his history of peripheral neuropathy. States that walking has become increasingly difficult and today has had difficulty walking at all, he injured his knee as he states he primarily fell on the knee and fell down a few steps but no other injuries are noted. 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 Reports swelling to the right lower extremity as well. He chronically is on pain medications. MD Complaint: extremity pain, extremity swelling, joint swelling and joint pain Onset (ago): day(s) (2) Pain Consistency: constant Location: right and lower extremity Associated symptoms: Deny chest pain, fever(s) or rash Context: other (Fall 2 days ago) Related Data Home Medications ?Medication ?Instructions ?Recorded ?Confirmed oxygen-air delivery systems ##1 06/10/19 10/09/22 aspirin 81 mg chewable tablet 81 mg PO DAILY 10/04/22 10/09/22 ceftazidime 2 gram intravenous 2 g IV Q8H 10/04/2204/23 solution daptomycin 350 mg intravenous 700 mg IV Q24H 10/04/22 10/09/22 solution terazosin 5 mg capsule 5 mg PO DAILY 10/04/2210/09 Previous Rx's ?Medication ?Instructions ?Recorded blood-glucose meter #1 ea 03/25/22 isosorbide dinitrate 20 mg tablet 20 mg PO BID #180 ta bs 03/25/22 apixaban 5 mg tablet (Eliquis) 5 mg PO BID #180 tabs 1 fluticasone fur. 100 mcg-umeclid 1 inh inhalation SHIMA Y #60 ea 03/27/22 62.5 mcg-vilant 25 mcg inhalat.powder (Trelegy Ellipta) nebulizers #1 ea 08/17/22 pen needle, diabetic 31 gauge x #100 ea 10/02/22 1/ (Unifine Pentips) test strips, lancets, needles #100 ea 10/02/22 potassium chloride 10 mEq 10 meq PO DAILY #30 tabs 12/21 tablet,extended release prednisone 20 mg tablet See Rx Instructions PO BID c opd 02/17/23 #15 tabs prednisone 5 mg tablet 5 mg PO DAILY PRN 06/17/23 inflammation/arthritis #30 tabs blood-glucose sensor (FreeStyle #100 ea 11/16/23 Kira 3 Sensor device) blood-glucose,information consultant,cont #100 ea 11/16/23 (FreeStyle Kira 3 Coolspring) triamcinolone acetonide 0.025 % 1 applic topical DAILY apply to 11/24/23 topical cream lips x 2 weeks #15 grams albuterol sulfate 90 mcg/actuation 2 puff inhalation Q ID PRN 02/19/24 aerosol inhaler (Ventolin HFA) shortness of breath or wheezing #8.5 grams albuterol sulfate 2.5 mg/3 mL 2.5 mg (3 mL) inhalation QID #180 05/06/24 (0.083 %) solution for nebulization mL pregabalin 150 mg capsule 150 mg PO DAILY neuropathy. 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 06/07/24 #90 tabs dapagliflozin propanediol 10 mg 10 mg PO DAILY kidneys //heart #1 07/04/24 tablet (Farxiga) tab pregabalin 300 mg capsule 300 mg PO DAILY #30 caps prednisone 20 mg tablet 40 mg (2 x 20 mg) PO DAILY 0 08/22/24 inflammatory pain 3 days #6 tabs sulfamethoxazole 800 1 tab PO BID cellulitis 10 d ays 08/31/24 mg-trimethoprim 160 mg tablet #20 tabs (Bactrim DS) hydrocodone 10 mg-acetaminophen 1 tab PO .q3hrs PRN br eakthrough 09/29/24 325 mg tablet pain 1 month #180 tabs insulin glargine 100 unit/mL (3 20 unit (0.2 mL) SUBCU T QAM #15 mL 10/07/24 mL) subcutaneous pen (Basaglar KwikPen U-100 Insulin) auto cpcp #1 ea 11/16/24 semaglutide 0.25 mg or 0.5 mg (2 1 mg (1.472 mL) SUBCU T .qweek #3 mL 12/17/24 mg/3 mL) subcutaneous pen injector (Ozempic) sitagliptin phosphate 50 mg tablet 50 mg PO DAILY #90 tabs 01/13/25 (Januvia) colchicine 0.6 mg capsule 1.2 mg (2 x 0.6 mg) PO DAILY PRN 01/27/25 gout #60 caps diabetic shoes, size to fit #1 ea 02/22/25 morphine 30 mg tablet,extended 30 mg PO Q12H pain 30 d ays #60 tabs 03/07/25 release Allergies Allergy/AdvReac Type Severity Reaction Status Date / Time fentanyl Allergy Unknown Unknown Verified 11/01/24 11:42 methadone Allergy Unknown Unknown Verified 11/01/24 11:42 oxycodone Allergy Unknown Unknown Verified 11/01/24 11:42 Lrwexzj-YQZ-ZxJ Reductase Allergy Unknown Verified 11/01/24 11:42 Inhibitor (Dseblam-Ami-Qub Reductase Inhibitor) Ativan Allergy Unknown Unknown Uncoded 11/01/24 11:42 Dilaudid Allergy Unknown Unknown Uncoded 11/01/24 11:42 Review of Systems General: Reports: 10 or more systems reviewed and unremarkable except in HPI and below Const: Reports: other (Reports fall); Denies: fever(s) or chills Card: Denies: chest pain Resp: Denies: dyspnea or productive cough GI: Denies: abdominal pain, nausea, vomiting or diarrhea : Denies: flank pain Musc: Reports: extremity pain, extremity swelling, joint pain and joint swelling; Denies: neck pain, back pain, joint redness, joint warmth, limited range of motion or muscle weakness Skin/Breast: Denies: rash Neuro: Denies: headache(s), numbness in extremities or weakness in extremities PFSH ED PFSH: Medical History Obstructive sleep apnea Diabetes mellitus Non-ST elevation NE (NSTEMI) Acute kidney injury superimposed on CKD Fluid overload CHF exacerbation Healthcare-associated pneumonia Acute on chronic respiratory failure with hypoxia Acute exacerbation of chronic obstructive pulmonary disease (COPD) Congestive heart failure Renal insufficiency Dyspnea COPD (chronic obstructive pulmonary disease) Chronic pain Anemia Surgical History No pertinent past surgical history Family History Other Cancer Hypertension Social History Smoking and tobacco/nicotine status: unknown if used tobacco/nicotine Alcohol intake: current Substance/Drug Use: never Physical Exam Const: COMMON NORMALS: no acute distress, average body habitus, patient oriented x3, no limitations, healthy appearing, alert and well nourished Resp: COMMON NORMALS: normal respiratory effort, No retractions, No use of accessory muscles and clear to auscultation bilaterally AUSCULTATION: clear to auscultation bilaterally Cardio: COMMON NORMALS: regular rate, regular rhythm, S1 normal heart sound present and S2 normal heart sound present RATE: regular rate RHYTHM: regular rhythm HEART SOUNDS: S1 normal heart sound present and S2 normal heart sound present Extremity: NARRATIVE EXTREMITY EXAM: Swelling noted to the right ankle diffusely, and swelling extends up the scales proximally. Large scabbed over abrasion to anterior right knee where there is mild swelling as well. Distal pulses are palpable. No reproducible tenderness to palpation along the right lower extremity. Neuro: COMMON NORMALS: patient oriented x3, moves all extremities and no focal motor deficits SENSORIUM/ORIENTATION: Yes alert Course Vital Signs: Vital signs: Vital Signs Temperature 98.3 F 03/10/25 15:45 Pulse Rate 86 03/10/25 20:20 Respiratory Rate 18 03/10/25 15:45 Blood Pressure 172/87 03/10/25 20:20 Pulse Oximetry 91 03/10/25 20:20 Oxygen Delivery Me thod Room Air 03/10/25 15:45 MDM - Extremity (Nontraumatic) Medical Decision Making Patient presenting with worsening right lower extremity pain and swelling after a fall 2 days ago, where he fell directly onto his right knee down a couple of steps. History of peripheral neuropathy and he chronically is on pain medications as well as medications for neuropathy. History of Holloway's cyst as well, which she is comparing the current pain to a previous ruptured Holloway's cyst on the same right lower extremity. Duplex ultrasound does not demonstrate any signs of posttrauma DVT or active ruptured Holloway's cyst. X-ray of the right ankle, foot, and knee are all unremarkable for any fractures though there is swelling noted about the soft tissues. I suspect an ankle sprain that he is continue to ambulate on and not treat properly at home. He is requesting shot of steroids here as he states that was similar pain in the past this has helped, I suspect he needs to treat more conservatively at home for sprain and he has follow-up appointment with primary care next week of which he will be reevaluated. In the meantime he is given general return precautions, all of the questions and concerns addressed. Lab Data Radiology Impressions Venous Duplex 03/10/25 16:38 IMPRESSION: No evidence of deep vein thrombosis. Right Holloway's cyst. Ankle X-Ray 03/10/25 18:58 IMPRESSION: 1. No acute fracture or subluxation. 2. Moderate soft tissue swelling. Foot X-Ray 03/10/25 18:58 IMPRESSION: 1. No acute fracture or subluxation. 2. Moderate soft tissue swelling. Knee X-Ray 03/10/25 18:58 IMPRESSION: 1. No acute fracture or subluxation. 2. Moderate suprapatellar joint effusion. All radiology interpretation(s) finalized by discharge Discharge Plan Discharge Patient Disposition: Home Clinical Impression: Right ankle sprain Qualifiers: Encounter type: initial encounter Involved ligament of ankle: unspecified ligament Qualified Code(s): S93.401A - Sprain of unspecified ligament of right ankle, initial encounter Condition: Stable Prescriptions: No Action (DME) oxygen-air delivery systems Device See Rx Instructions .ROUTE .MEDSUPPLY Qty: 1 Rx Instructions: As directed prednisone 20 mg tablet 40 mg PO DAILY 3 Days Qty: 6 0RF Eliquis 5 mg tablet 5 mg PO BID Qty: 180 3RF Trelegy Ellipta 100-62.5-25 mcg blister with device 1 inh inhalation DAILY Qty: 60 11RF prednisone 20 mg tablet See Rx Instructions PO BID Qty: 15 0RF Rx Instructions: 2 po qday x 5 days, then 1 po qday x 1 day x 5 days. triamcinolone acetonide 0.025 % cream 1 applic topical DAILY Qty: 15 0RF isosorbide dinitrate 20 mg tablet 20 mg PO BID Qty: 180 3RF Rx Instructions: allow nitrate-free interval of 12-14 hrs per 24-hr period (DME) blood-glucose meter Kit See Rx Instructions .Route Qty: 1 0RF Rx Instructions: As directed for monitoring DM, E11.9 (DME) nebulizers Mis See Rx Instructions .ROUTE .MEDSUPPLY Qty: 1 0RF Rx Instructions: As directed (DME) pen needle, diabetic [Unifine Pentips] 31 gauge x 1/4 needle See Rx Instructions .Route Qty: 100 3RF Rx Instructions: As directed (DME) test strips, lancets, needles See Rx Instructions .Route .MEDSUPPLY Qty: 100 3RF Rx Instructions: As directed for checking and treatment of DM, E11.9 prednisone 5 mg tablet 5 mg PO DAILY PRN (Reason: inflammation/arthritis) Qty: 30 5RF Rx Instructions: take for inflammatory pain (DME) FreeStyle Kira 3 Sensor Device See Rx Instructions .Route Qty: 100 12RF Rx Instructions: As directed [place] FreeStyle Kira 3 Coolspring Misc See Rx Instructions .Route Qty: 100 12RF Rx Instructions: As directed albuterol sulfate [Ventolin HFA] 90 mcg/actuation HFA aerosol inhaler 2 puff inhalation QID PRN (Reason: shortness of breath or wheezing) Qty: 8.5 11RF albuterol sulfate 2.5 mg /3 mL (0.083 %) solution for nebulization 2.5 mg inhalation QID Qty: 180 3RF pregabalin 150 mg capsule 150 mg PO DAILY Qty: 30 5RF Rx Instructions: Take 150mg in the evening. bumetanide 1 mg tablet 1 mg PO DAILY Qty: 90 3RF allopurinol 100 mg tablet 100 mg PO DAILY Qty: 90 3RF dapagliflozin propanediol [Farxiga] 10 mg tablet 10 mg PO DAILY Qty: 1 0RF pregabalin 300 mg capsule 300 mg PO DAILY Qty: 30 5RF Rx Instructions: Take 300mg in the am. sulfamethoxazole-trimethoprim [Bactrim DS] 800-160 mg tablet 1 tab PO BID 10 Days Qty: 20 0RF hydrocodone-acetaminophen 10-325 mg tablet 1 tab PO .q3hrs MDD 6 tabs per day PRN (Reason: breakthrough pain) 30 Days Qty: 180 0RF insulin glargine [Basaglar KwikPen U-100 Insulin] 100 unit/mL (3 mL) insulin pen 20 unit SUBCUT QAM Qty: 15 11RF (DME) auto cpcp See Rx Instructions .Route .MEDSUPPLY Qty: 1 0RF Rx Instructions: 6 to 14cm with 2L 02 bleed in Ozempic 0.25 mg or 0.5 mg (2 mg/3 mL) pen injector 1 mg SUBCUT .qweek Qty: 3 12RF Januvia 50 mg tablet 50 mg PO DAILY Qty: 90 0RF colchicine 0.6 mg capsule 1.2 mg PO DAILY PRN (Reason: gout) Qty: 60 5RF (DME) diabetic shoes, size to fit See Rx Instructions .Route .MEDSUPPLY Qty: 1 1RF Rx Instructions: As directed morphine 30 mg tablet extended release 30 mg PO Q12H 30 Days Qty: 60 0RF terazosin 5 mg Capsule 5 mg PO DAILY aspirin 81 mg Tablet,Chewable 81 mg PO DAILY ceftazidime 2 gram Recon Soln 2 g IV Q8H daptomycin 350 mg Recon Soln 700 mg IV Q24H potassium chloride 10 mEq tablet extended release 10 meq PO DAILY Qty: 30 0RF Discharge Orders: Discharge ED (Routine); Ordered 03/10/25 Ordered By: Felipe Langford Referrals: Dustin Carmona DO [Primary Care Provider, Family Practice] Patient Instructions: Patient Portal & Zoe Instructions Activity Restrictions/Additional Instructions: Continue your home pain medications. Rest, ice, compression, and elevation of the right lower extremity. Please follow-up with your primary care provider early next week as scheduled. Return with any new or worsening symptoms. Your x-rays and ultrasound today were negative for any fracture or other major findings. Print Language: Colombian Coding Level of Care Code ED Swimming Pool Service Technician for Chg Fwd Documented by User: Cosmo Navarro DO 03/11/25 03:41 HPI - Extremity Problem General: Chief complaint: Extremity Injury, Lower Stated complaint: R Leg Foot Swelling Painful Time Seen by Provider: 03/10/25 18:48 Related Data Home Medications ?Medication ?Instructions ?Recorded ?Confirmed oxygen-air delivery systems ##1 06/10/19 10/09/22 aspirin 81 mg chewable tablet 81 mg PO DAILY 10/04/22 10/09/22 ceftazidime 2 gram intravenous 2 g IV Q8H 10/04/2204/23 solution daptomycin 350 mg intravenous 700 mg IV Q24H 10/04/22 10/09/22 solution terazosin 5 mg capsule 5 mg PO DAILY 10/04/2210/09 Previous Rx's ?Medication ?Instructions ?Recorded blood-glucose meter #1 ea 03/25/22 isosorbide dinitrate 20 mg tablet 20 mg PO BID #180 ta bs 03/25/22 apixaban 5 mg tablet (Eliquis) 5 mg PO BID #180 tabs 1 fluticasone fur. 100 mcg-umeclid 1 inh inhalation SHIMA Y #60 ea 03/27/22 62.5 mcg-vilant 25 mcg inhalat.powder (Trelegy Ellipta) nebulizers #1 ea 08/17/22 pen needle, diabetic 31 gauge x #100 ea 10/02/2206/04 (Unifine Pentips) test strips, lancets, needles #100 ea 10/02/22 potassium chloride 10 mEq 10 meq PO DAILY #30 tabs 12/21 tablet,extended release prednisone 20 mg tablet See Rx Instructions PO BID c opd 02/17/23 #15 tabs prednisone 5 mg tablet 5 mg PO DAILY PRN 06/17/23 inflammation/arthritis #30 tabs blood-glucose sensor (FreeStyle #100 ea 11/16/23 Kira 3 Sensor device) blood-glucose,information consultant,cont #100 ea 11/16/23 (FreeStyle Kira 3 Coolspring) triamcinolone acetonide 0.025 % 1 applic topical DAILY apply to 11/24/23 topical cream lips x 2 weeks #15 grams albuterol sulfate 90 mcg/actuation 2 puff inhalation Q ID PRN 02/19/24 aerosol inhaler (Ventolin HFA) shortness of breath or wheezing #8.5 grams albuterol sulfate 2.5 mg/3 mL 2.5 mg (3 mL) inhalation QID #180 05/06/24 (0.083 %) solution for nebulization mL pregabalin 150 mg capsule 150 mg PO DAILY neuropathy. 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 06/07/24 #90 tabs dapagliflozin propanediol 10 mg 10 mg PO DAILY kidneys //heart #1 07/04/24 tablet (Farxiga) tab pregabalin 300 mg capsule 300 mg PO DAILY #30 caps prednisone 20 mg tablet 40 mg (2 x 20 mg) PO DAILY 0 08/22/24 inflammatory pain 3 days #6 tabs sulfamethoxazole 800 1 tab PO BID cellulitis 10 d ays 08/31/24 mg-trimethoprim 160 mg tablet #20 tabs (Bactrim DS) hydrocodone 10 mg-acetaminophen 1 tab PO .q3hrs PRN br eakthrough 09/29/24 325 mg tablet pain 1 month #180 tabs insulin glargine 100 unit/mL (3 20 unit (0.2 mL) SUBCU T QAM #15 mL 10/07/24 mL) subcutaneous pen (Basaglar KwikPen U-100 Insulin) auto cpcp #1 ea 11/16/24 semaglutide 0.25 mg or 0.5 mg (2 1 mg (1.472 mL) SUBCU T .qweek #3 mL 12/17/24 mg/3 mL) subcutaneous pen injector (OzempOcean Aero) sitagliptin phosphate 50 mg tablet 50 mg PO DAILY #90 tabs 01/13/25 (Januvia) colchicine 0.6 mg capsule 1.2 mg (2 x 0.6 mg) PO DAILY PRN 01/27/25 gout #60 caps diabetic shoes, size to fit #1 ea 02/22/25 morphine 30 mg tablet,extended 30 mg PO Q12H pain 30 d ays #60 tabs 03/07/25 release Allergies Allergy/AdvReac Type Severity Reaction Status Date / Time fentanyl Allergy Unknown Unknown Verified 11/01/24 11:42 methadone Allergy Unknown Unknown Verified 11/01/24 11:42 oxycodone Allergy Unknown Unknown Verified 11/01/24 11:42 Vwqddwm-SGP-FlN Reductase Allergy Unknown Verified 11/01/24 11:42 Inhibitor (Smbgdka-Czm-Uxz Reductase Inhibitor) Ativan Allergy Unknown Unknown Uncoded 11/01/24 11:42 Dilaudid Allergy Unknown Unknown Uncoded 11/01/24 11:42 PFSH ED PFSH: Medical History Obstructive sleep apnea Diabetes mellitus Non-ST elevation NE (NSTEMI) Acute kidney injury superimposed on CKD Fluid overload CHF exacerbation Healthcare-associated pneumonia Acute on chronic respiratory failure with hypoxia Acute exacerbation of chronic obstructive pulmonary disease (COPD) Congestive heart failure Renal insufficiency Dyspnea COPD (chronic obstructive pulmonary disease) Chronic pain Anemia Surgical History No pertinent past surgical history Family History Other Cancer Hypertension Social History Smoking and tobacco/nicotine status: unknown if used tobacco/nicotine Alcohol intake: current Substance/Drug Use: never Course Vital Signs: Vital signs: Vital Signs Temperature 98.3 F 03/10/25 15:45 Pulse Rate 86 03/10/25 20:20 Respiratory Rate 18 03/10/25 15:45 Blood Pressure 172/87 03/10/25 20:20 Pulse Oximetry 91 03/10/25 20:20 Oxygen Delivery Me thod Room Air 03/10/25 15:45 MDM - Extremity (Nontraumatic) Medical Decision Making Patient presenting with worsening right lower extremity pain and swelling after a fall 2 days ago, where he fell directly onto his right knee down a couple of steps. History of peripheral neuropathy and he chronically is on pain medications as well as medications for neuropathy. History of Holloway's cyst as well, which she is comparing the current pain to a previous ruptured Holloway's cyst on the same right lower extremity. Duplex ultrasound does not demonstrate any signs of posttrauma DVT or active ruptured Holloway's cyst. X-ray of the right ankle, foot, and knee are all unremarkable for any fractures though there is swelling noted about the soft tissues. I suspect an ankle sprain that he is continue to ambulate on and not treat properly at home. He is requesting shot of steroids here as he states that was similar pain in the past this has helped, I suspect he needs to treat more conservatively at home for sprain and he has follow-up appointment with primary care next week of which he will be reevaluated. In the meantime he is given general return precautions, all of the questions and concerns addressed. This patient was originally seen by Mr. Anastasiya PA-C. I agree with his history, evaluation, and treatment. Lab Data Radiology Impressions Venous Duplex 03/10/25 16:38 IMPRESSION: No evidence of deep vein thrombosis. Right Holloway's cyst. Ankle X-Ray 03/10/25 18:58 IMPRESSION: 1. No acute fracture or subluxation. 2. Moderate soft tissue swelling. Foot X-Ray 03/10/25 18:58 IMPRESSION: 1. No acute fracture or subluxation. 2. Moderate soft tissue swelling. Knee X-Ray 03/10/25 18:58 IMPRESSION: 1. No acute fracture or subluxation. 2. Moderate suprapatellar joint effusion. Discharge Plan Discharge Patient Disposition: Home Clinical Impression: Right ankle sprain Qualifiers: Encounter type: initial encounter Involved ligament of ankle: unspecified ligament Qualified Code(s): S93.401A - Sprain of unspecified ligament of right ankle, initial encounter Condition: Stable Prescriptions: No Action (DME) oxygen-air delivery systems Device See Rx Instructions .ROUTE .MEDSUPPLY Qty: 1 Rx Instructions: As directed prednisone 20 mg tablet 40 mg PO DAILY 3 Days Qty: 6 0RF Eliquis 5 mg tablet 5 mg PO BID Qty: 180 3RF Trelegy Ellipta 100-62.5-25 mcg blister with device 1 inh inhalation DAILY Qty: 60 11RF prednisone 20 mg tablet See Rx Instructions PO BID Qty: 15 0RF Rx Instructions: 2 po qday x 5 days, then 1 po qday x 1 day x 5 days. triamcinolone acetonide 0.025 % cream 1 applic topical DAILY Qty: 15 0RF isosorbide dinitrate 20 mg tablet 20 mg PO BID Qty: 180 3RF Rx Instructions: allow nitrate-free interval of 12-14 hrs per 24-hr period (DME) blood-glucose meter Kit See Rx Instructions .Route Qty: 1 0RF Rx Instructions: As directed for monitoring DM, E11.9 (DME) nebulizers Misc See Rx Instructions .ROUTE .MEDSUPPLY Qty: 1 0RF Rx Instructions: As directed ([facility] pen needle, diabetic [Unifine Pentips] 31 gauge x 1/4 needle See Rx Instructions .Route Qty: 100 3RF Rx Instructions: As directed (DME) test strips, lancets, needles See Rx Instructions .Route .MEDSUPPLY Qty: 100 3RF Rx Instructions: As directed for checking and treatment of DM, E11.9 prednisone 5 mg tablet 5 mg PO DAILY PRN (Reason: inflammation/arthritis) Qty: 30 5RF Rx Instructions: take for inflammatory pain (DME) FreeStyle Kira 3 Sensor Device See Rx Instructions .Route Qty: 100 12RF Rx Instructions: As directed ([facility] FreeStyle Kira [facility] See Rx Instructions .Route Qty: 100 12RF Rx Instructions: As directed albuterol sulfate [Ventolin HFA] 90 mcg/actuation HFA aerosol inhaler 2 puff inhalation QID PRN (Reason: shortness of breath or wheezing) Qty: 8.5 11RF albuterol sulfate 2.5 mg /3 mL (0.083 %) solution for nebulization 2.5 mg inhalation QID Qty: 180 3RF pregabalin 150 mg capsule 150 mg PO DAILY Qty: 30 5RF Rx Instructions: Take 150mg in the evening. bumetanide 1 mg tablet 1 mg PO DAILY Qty: 90 3RF allopurinol 100 mg tablet 100 mg PO DAILY Qty: 90 3RF dapagliflozin propanediol [Farxiga] 10 mg tablet 10 mg PO DAILY Qty: 1 0RF pregabalin 300 mg capsule 300 mg PO DAILY Qty: 30 5RF Rx Instructions: Take 300mg in the am. sulfamethoxazole-trimethoprim [Bactrim DS] 800-160 mg tablet 1 tab PO BID 10 Days Qty: 20 0RF hydrocodone-acetaminophen 10-325 mg tablet 1 tab PO .q3hrs MDD 6 tabs per day PRN (Reason: breakthrough pain) 30 Days Qty: 180 0RF insulin glargine [Basaglar KwikPen U-100 Insulin] 100 unit/mL (3 mL) insulin pen 20 unit SUBCUT QAM Qty: 15 11RF ([facility] auto cpcp See Rx Instructions .Route .MEDSUPPLY Qty: 1 0RF Rx Instructions: 6 to 14cm with 2L 02 bleed in Ozempic 0.25 mg or 0.5 mg (2 mg/3 mL) pen injector 1 mg SUBCUT .qweek Qty: 3 12RF Januvia 50 mg tablet 50 mg PO DAILY Qty: 90 0RF colchicine 0.6 mg capsule 1.2 mg PO DAILY PRN (Reason: gout) Qty: 60 5RF (DME) diabetic shoes, size to fit See Rx Instructions .Route .MEDSUPPLY Qty: 1 1RF Rx Instructions: As directed morphine 30 mg tablet extended release 30 mg PO Q12H 30 Days Qty: 60 0RF terazosin 5 mg Capsule 5 mg PO DAILY aspirin 81 mg Tablet,Chewable 81 mg PO DAILY ceftazidime 2 gram Recon Soln 2 g IV Q8H daptomycin 350 mg Recon Soln 700 mg IV Q24H potassium chloride 10 mEq tablet extended release 10 meq PO DAILY Qty: 30 0RF Discharge Orders: Discharge ED (Routine); Ordered 03/10/25 Ordered By: Felipe Langford Referrals: Dustin Carmona DO [Primary Care Provider, Family Practice] Patient Instructions: Patient Portal & Zoe Instructions Activity Restrictions/Additional Instructions: Continue your home pain medications. Rest, ice, compression, and elevation of the right lower extremity. Please follow-up with your primary care provider early next week as scheduled. Return with any new or worsening symptoms. Your x-rays and ultrasound today were negative for any fracture or other major findings. Print Language: Colombian Coding Level of Care Code ED Swimming Pool Service Technician for Crystal Walker
[2025-03-10 20:20] VITALS: BP 172/87; PULSE 86; O2SAT 91
== END 2025-03-10 20:22 | disposition home or self-care (01) ==
PROVIDERS: Emergency Provider Physician Assistant; PCP Family Medicine
DX: S93.401A Sprain of unspecified ligament of right ankle, initial encounter (principal); W10.9XXA Fall (on) (from) unspecified stairs and steps, initial encounter; G62.9 Polyneuropathy, unspecified
CPT/HCPCS: 73562; 73610; 73630; 93971; 96372; 99284; J1100; J9999